=== PATIENT | male | born 1975 | race Caucasian/White ===

== ENCOUNTER 2016-06-27 15:31 | Emergency (ER) | payer BC ==
[2016-06-27 15:38] VITALS: BP 133/79
[2016-06-27 16:29] LABS: Urine Bilirubin Negative (Negative); Urine Glucose Negative (Negative); Urine Nitrite Negative (Negative)
[2016-06-27 16:30] LABS: Hematocrit 44 % (42-52); Hemoglobin 14.5 g/dl (14.0-18.0); Mean Corpuscular HGB Conc 33 g/dl (31-36); Mean Corpuscular Hemoglobin 30 pg (27-31); Mean Corpuscular Volume 91 fL (80-94); Mean Platelet Volume 10 um3 (7.4-10.4); Red Cell Distribution Width 14 % (10.5-15); White Blood Count 12.6 10^3/ul (3.5-10.8)
[2016-06-27 16:32] LABS: Add Diff/Slide Review? Slide Review Added; Comments Flag Yes
[2016-06-27 16:43] LABS: Benzodiazepine Urine Screen None Detected (None Detect)
[2016-06-27 16:45] LABS: ALT 21 U/L (7-52); AST 28 U/L (13-39); Albumin 4.6 g/dL (3.2-5.2); Alkaline Phosphatase 43 U/L (34-104); Anion Gap 9 mmol/L (2-11); BUN/Creatinine Ratio 10.8 (8-20); Blood Urea Nitrogen 9 mg/dL (6-24); CO2 Carbon Dioxide 21 mmol/L (22-32); Calcium 9.5 mg/dL (8.6-10.3); Chloride 107 mmol/L (101-111); EGFR African American 132.6 (>60); EGFR Non-African American 103.1 (>60); Globulin 2.7 g/dL (2-4); Glucose 87 mg/dL (70-100); Potassium 3.7 mmol/L (3.5-5.0); Sodium 137 mmol/L (133-145); Total Protein 7.3 g/dL (6.4-8.9)
[2016-06-27 17:15] LABS: Acetaminophen < 15 mcg/mL; Alcohol 189 mg/dL (<10); Salicylate < 2.50 mg/dL (<30)
[2016-06-27] MEDS ORDERED: clonazePAM TAB(*) 1 MG PO ONE (17:21)
[2016-06-27] MEDS ORDERED: clonazePAM TAB(*) 0.5 MG ONE (17:23)
[2016-06-27] MEDS ORDERED: clonazePAM TAB(*) 0.5 MG PO ONE (17:24)
[2016-06-27 19:37] LABS: Lithium 0.42 mmol/L (0.6-1.2)
[2016-06-27] MEDS ORDERED: Ibuprofen TAB* 600 MG PO ONE (19:44)
[2016-06-27] MEDS ORDERED: Ibuprofen TAB* 600 MG ONE (19:45)
--- NOTE | 2016-06-29 07:35 | ED ---
Santiago Tijerina Adam, scribed for Don Cerda MD on 06/27/16 at 1601 . Psychiatric Complaint - HPI Summary HPI Summary: Pt is a 40 year old male presenting with SI. His states that he has not been feeling well lately and has been thinking about killing himself. She told the triage nurse that the pt tried to jump out of a moving car today. She believes that he has tried hurting himself in the past. The states that they went out to celebrate her birthday today and the pt drank approximately 4 beers. She told him that he needs to get help and get his drinking under control , so she decided to take him to the ED. Pt also states that he has been awake since 2 am for his job with [employer]. He has been working this early shift for approximately 4 months. Pt has a PMHx of bipolar. He takes [place] and denies missing any doses. His psychiatrist is Dr. Culver. In addition to alcohol, he reports positive usage of cigarettes and marijuana. - History Of Current Complaint Chief Complaint: [facility]ental[facility] Time Seen by Provider: 06/27/16 15:40 Hx Obtained From: Patient, Family/Buyer - Onset/Duration: Gradual Onset, Lasting Days, Still Present Timing: Constant Severity Initially: Moderate Severity Currently: Moderate Character: Depressed Aggravating Factor(s): Alcohol Use Associated Signs And Symptoms: Positive: Sleep Disturbance - Goes to work at 2 am regularly Related History: Positive For: Prior Psychiatric Issues - Bipolar Has Suicidal: Reports: Thoughts, Demonstrates Gesture - Tried to jump out of a moving car (per ), Has Prior Attempt(s) - Per Ingestion History: Type/Name Of Drug - EtOH, Amount Ingested - 4 beers, Approximate Time Of Ingestion - Today - Allergies/Home Medications Allergies/Adverse Reactions: Allergies Allergy/AdvReac Type Severity Reaction Status Date / Time No Known Allergies Allergy Verified 06/27/16 15:34 Home Medications: Home Medications Desvenlafaxine Fumarate [Desvenlafaxine ER] 50 mg PO DAILY 06/27/16 [History Confirmed 06/27/16] clonazePAM TAB(*) [KlonoPIN TAB(*)] 1 mg PO TID PRN 06/27/16 [History Confirmed 06/27/16] PMH/Surg Hx/FS Hx/Imm Hx GI History: Denies: Other GI Disorders History: Denies: Other Problems/Disorders Musculoskeletal History: Denies: Other Musculoskeletal History Sensory History: Reports: Hx Contacts or Glasses Denies: Hx Hearing Aid Opthamlomology History: Reports: Hx Contacts or Glasses Neurological History: Reports: Hx Headaches - CLUSTER HEADACHES Psychiatric History: Reports: Hx Anxiety, Hx Depression, Hx Inpatient Treatment , Hx Community Mental Health Tx, Hx Bipolar Disorder, Hx of Violent Episodes Against Others, Hx Substance Abuse - Early 20s Denies: Hx Eating Disorder, Hx Suicide Attempt - "Close" - Surgical History Surgery Procedure, Year, and Place: TONSILLECTOMY A CHILD Hx Anesthesia Reactions: No Infectious Disease History: No Infectious Disease History: Denies: Traveled Outside the [place] in Last 30 Days - Family History Known Family History: Positive: Other - Alcohol abuse (brother and uncle) - Social History Occupation: Employed Full-time Lives: With Family - Alcohol Use: Daily Alcohol Amount: 4-5 DRINKS A WEEK Hx Substance Use: Yes Substance Use Type: Reports: Marijuana Hx Tobacco Use: Yes Smoking Status (MU): Heavy Every Day Tobacco Smoker Amount Used/How Often: 1 PPD Length of Time of Smoking/Using Tobacco: 10 YRS Have You Smoked in the Last Year: No Review of Systems Negative: Fever, Chills Negative: Erythema Negative: Sore Throat Negative: Chest Pain Negative: Shortness Of Breath, Cough Negative: Abdominal Pain, Vomiting, Nausea Negative: dysuria, hematuria Negative: Myalgia, Edema Negative: Rash Neurological: Other - Negative dizziness Positive: Depressed All Other Systems Reviewed And Are Negative: Yes Physical Exam - Summary Physical Exam Summary: Constitutional: Well-developed, Well-nourished, Alert. (-) Distressed Skin: Warm, Dry HENT: Normocephalic; Atraumatic Eyes: Conjunctiva normal Neck: Musculoskeletal ROM normal neck. (-) JVD, (-) Stridor, (-) Tracheal deviation Cardio: Rhythm regular, rate normal, Heart sounds normal; Intact distal pulses; The pedal pulses are 2+ and symmetric. Radial pulses are 2+ and symmetric. (-) Murmur Pulmonary/Chest wall: Effort normal. (-) Respiratory distress, (-) Wheezes, (-) Rales Abd: Soft, (-) Tenderness, (-) Distension, (-) Guarding, (-) Rebound Musculoskeletal: (-) Edema Lymph: (-) Cervical adenopathy Neuro: Alert, Oriented x3 Psych: Mood and affect Normal Triage Information Reviewed: Yes Vital Signs On Initial Exam: Initial Vitals Temp Pulse Resp BP Pulse Ox 98.3 F 95 16 133/79 100 06/27/16 15:34 06/27/16 15:34 06/27/16 15:34 06/27/16 15:34 06/27/16 15:34 Vital Signs Reviewed: Yes Diagnostics - Vital Signs Vital Signs Temp Pulse Resp BP Pulse Ox 06/27/16 15:34 98.3 F 95 16 133/79 100 - Laboratory Result Diagrams: 06/27/16 16:14 06/27/16 16:14 Lab Statement: Any lab studies that have been ordered have been reviewed, and results considered in the medical decision making process. - Additional Comments Diagnostic Additional Comments: U Cannabinoids Screen - Presumptive Positive Serum Alcohol - 189 Course/Dx - Differential Dx/Clinical Impression Provider Diagnosis: ETOH abuse, Suicidal ideation Discharge - Discharge Plan Condition: Stable Disposition: OTHER Discharge Disposition Comment: Sign out to Dr. Canales, pending sobriety and psych eval. The documentation as recorded by the Santiago mckeon Adam accurately reflects the service I personally performed and the decisions made by me, Don Cerda MD.
== END 2016-06-27 20:06 ==
LOC: ED 15:31
DX: F10.129 Alcohol abuse with intoxication, unspecified (principal); R45.851 Suicidal ideations
CPT/HCPCS: 36415; 80053; 80178; 80307; 80320; 80329; 81003; 84443; 85025; 99282; A9270-GY; G0480

== ENCOUNTER 2016-10-27 14:00 | Inpatient (IN) | payer BC ==
[2016-10-27] MEDS ORDERED: NS 0.9% 1000 ML* 1,000 ML IV ONE (14:20)
[2016-10-27 14:44] LABS: Hematocrit 43 % (42-52); Mean Corpuscular HGB Conc 33 g/dl (31-36); Mean Corpuscular Hemoglobin 29 pg (27-31); Mean Corpuscular Volume 90 fL (80-94); Mean Platelet Volume 10 um3 (7.4-10.4); Red Blood Count 4.75 10^6/ul (4.0-5.4); Red Cell Distribution Width 13 % (10.5-15); White Blood Count 10.2 10^3/ul (3.5-10.8)
[2016-10-27 14:46] LABS: Add Diff/Slide Review? Slide Review Added; Comments Flag Yes
[2016-10-27 14:53] LABS: Urine Bacteria Absent (Absent); Urine Bilirubin Negative (Negative); Urine Glucose Negative (Negative); Urine Nitrite Negative (Negative)
[2016-10-27 14:59] LABS: ALT 26 U/L (7-52); AST 26 U/L (13-39); Albumin 4.4 g/dL (3.2-5.2); Alkaline Phosphatase 40 U/L (34-104); Anion Gap 8 mmol/L (2-11); BUN/Creatinine Ratio 12.7 (8-20); Blood Urea Nitrogen 13 mg/dL (6-24); CO2 Carbon Dioxide 23 mmol/L (22-32); Calcium 9.3 mg/dL (8.6-10.3); Chloride 105 mmol/L (101-111); EGFR Non-African American 80.9 (>60); Globulin 2.4 g/dL (2-4); Glucose 93 mg/dL (70-100); Potassium 3.7 mmol/L (3.5-5.0); Sodium 136 mmol/L (133-145); Total Protein 6.8 g/dL (6.4-8.9)
[2016-10-27 15:05] LABS: Benzodiazepine Urine Screen None Detected (None Detect)
[2016-10-27 15:20] LABS: Acetaminophen < 15 mcg/mL; Alcohol < 10 mg/dL (<10); Lithium 0.62 mmol/L (0.6-1.2); Salicylate < 2.50 mg/dL (<30)
[2016-10-27 15:30] LABS: TSH (Thyroid Stimulating Horm) 2.03 mcIU/mL (0.34-5.60)
[2016-10-27] MEDS ORDERED: Acetaminophen TAB* 325 MG PO PRN (17:10)
[2016-10-27] MEDS ORDERED: Al Hydrox/Mg Hydrox/Simet LIQ* 30 ML UDC PO PRN (17:10)
[2016-10-27] MEDS ORDERED: Haloperidol TAB* 5 MG PO PRN (17:11)
[2016-10-27] MEDS ORDERED: LORazepam TAB(*) 1 MG PO PRN (17:12)
[2016-10-27] MEDS ORDERED: Nicotine GUM* 2 MG PO PRN (17:13)
[2016-10-27] MEDS ORDERED: Mouth Piece, Nicotine* 1 EACH CARTRIDGE INH ONE (18:00)
[2016-10-27] MEDS: Nicotine Inhaler* 10 MG AMP INH PRN ×2 (18:28→21:03)
--- NOTE | 2016-10-27 18:34 | ED ---
Clint Tijerina Auryana, scribed for Rogelio Arciniega MD on 10/27/16 at 1406 . Psychiatric Complaint - HPI Summary HPI Summary: 41 year old male presents to the ED with SI and attempt. Patient is unsure who called the police - states he lives with his family and did not speak with anyone at work. He does report that this morning he spoke with his 10 year old daughter and told her to "make sure they don't cremate me". Patient reports that he is tired of his life and took 5-6 clonazepam today at 12:00. He states that he was unable to make an appointment with his therapist/psychiatrist over the last 3 weeks. He states that he has not been eating normally and that yesterday he was having delusions and hallucinations possibly due to sleep deprivation and lack of food. He reports that he normally sleeps 4 hours a night and last night slept about 8 hours. PMHx is significant for depression, anxiety, bipolar disorder (Suarez Rx), alcohol abuse, substance abuse, inpatient admission- no history of self-harm tendencies. SHx is significant for tobacco, alcohol abuse (May last drink), and substance abuse (marijuana, and prescribed). 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 - History Of Current Complaint Time Seen by Provider: 10/27/16 14:05 Accompanied By: police Hx Obtained From: Patient Onset/Duration: Gradual Onset, Still Present Character: Frustrated Associated Signs And Symptoms: Positive: Hallucinating, Appetite Change - decreased Related History: Positive For: Prior Psychiatric Issues, Drug Abuse Counseling, Admissions Related To Substance Abuse Has Suicidal: Reports: Thoughts, Demonstrates Gesture Ingestion History: Type/Name Of Drug - clonazepam, Amount Ingested - 5-6 1mg tablets, Approximate Time Of Ingestion - 12 PM - Allergies/Home Medications Allergies/Adverse Reactions: Allergies Allergy/AdvReac Type Severity Reaction Status Date / Time No Known Allergies Allergy Verified 06/27/16 15:34 Home Medications: Home Medications Cialis 5 mg PO DAILY 10/27/16 [History Confirmed 10/27/16] Pristiq 50 mg PO 10/27/16 [History] PMH/Surg Hx/FS Hx/Imm Hx GI History: Denies: Other GI Disorders History: Denies: Other Problems/Disorders Musculoskeletal History: Denies: Other Musculoskeletal History Sensory History: Reports: Hx Contacts or Glasses Denies: Hx Hearing Aid Opthamlomology History: Reports: Hx Contacts or Glasses Neurological History: Reports: Hx Headaches - CLUSTER HEADACHES Psychiatric History: Reports: Hx Anxiety, Hx Depression, Hx Inpatient Treatment , Hx Community Mental Health Tx, Hx Bipolar Disorder, Hx of Violent Episodes Against Others, Hx Substance Abuse - Early 20s Denies: Hx Eating Disorder, Hx Suicide Attempt - "Close" - Surgical History Surgery Procedure, Year, and Place: TONSILLECTOMY A CHILD Hx Anesthesia Reactions: No - Family History Known Family History: Positive: Other - Alcohol abuse (brother and uncle) - Social History Occupation: Employed Full-time Lives: With Family Alcohol Use: Daily Alcohol Amount: 4-5 DRINKS A WEEK - on ED physician visit patient states sober since may Hx Substance Use: Yes Substance Use Type: Reports: Marijuana, Prescribed Hx Tobacco Use: Yes Smoking Status (MU): Heavy Every Day Tobacco Smoker Amount Used/How Often: 1 PPD Length of Time of Smoking/Using Tobacco: 10 YRS Have You Smoked in the Last Year: No Review of Systems Positive: Other - CLONOPIN X6 ingestion . Negative: Fever Eyes: Negative ENT: Negative Cardiovascular: Negative Respiratory: Negative Gastrointestinal: Negative Genitourinary: Negative Musculoskeletal: Negative Skin: Negative Neurological: Negative Positive: Other - SI All Other Systems Reviewed And Are Negative: Yes Physical Exam - Summary Physical Exam Summary: The patient is well-nourished in no acute distress and in no acute pain. The skin is warm and dry and skin color reflects adequate perfusion. HEENT: The head is normocephalic and atraumatic. The pupils are equal and reactive. The conjunctivae are clear and without drainage. Nares are patent and without drainage. Mouth reveals moist mucous membranes and the throat is without erythema and exudate. The external ears are intact. The ear canals are patent and without drainage. The tympanic membranes are intact. Neck is supple with full range of motion and non-tender. There are no carotid bruits. There is no neck vein distension. Respiratory: Chest is non-tender. Lungs are clear to auscultation and breath sounds are symmetrical and equal. Cardiovascular: Hear is regular rate and rhythm. There is no murmur or rub auscultated. There is no peripheral edema and pulses are symmetrical and equal. Abdomen: The abdomen is soft and non-tender. There are normal bowel sounds heard in all four quadrants and there is no organomegaly palpated. Musculoskeletal: There is no back pain noted. Extremities are non-tender with full range of motion. There is good capillary refill. There is no peripheral edema or calf tenderness elicited. Neurological: Patient is alert and oriented to person, place and time. The patient has symmetrical motor strength in all four extremities. Cranial nerves are grossly intact. Deep tendon reflexes are symmetrical and equal in all four extremities. Psychiatric: The patient appears depressed with clear suicidal ideation. Triage Information Reviewed: Yes Vital Signs On Initial Exam: TEMPERATURE: 99.5 F PULSE: 83 RR: 16 O2 saturation: 96% on room air BP: 119/74 Vital Signs Reviewed: Yes Diagnostics - Vital Signs Vital Signs Temp Pulse Resp BP Pulse Ox 10/27/16 16:55 98.6 F 71 17 125/76 100 10/27/16 16:00 74 18 98/37 98 10/27/16 15:30 78 21 95/42 97 10/27/16 15:00 76 23 110/59 97 10/27/16 14:47 73 22 97 10/27/16 14:45 110/63 10/27/16 14:37 99.5 F 84 18 119/84 98 10/27/16 14:21 99.5 F 83 16 119/74 96 - Laboratory Lab Results: Lab Results 10/27/16 10/27/16 10/27/16 Range/Units 14:30 14:30 14:43 WBC 10.2 (3.5-10.8) 10^3/ul RBC 4.75 (4.0-5.4) 10^6/ul Hgb 14.0 (14.0-18.0) g/dl Hct 43 (42-52) % MCV 90 (80-94) fL MCH 29 (27-31) pg MCHC 33 (31-36) g/dl RDW 13 (10.5-15) % Plt Count 174 (150-450) 10^3/ul MPV 10 (7.4-10.4) um3 Neut % (Auto) 70.5 (38-83) % Lymph % (Auto) 17.9 L (25-47) % [place] % (Auto) 6.1 (1-9) % Eos % (Auto) 4.5 (0-6) % Baso % (Auto) 1.0 (0-2) % Absolute Neuts (auto) 7.2 (1.5-7.7) 10^3/ul Absolute Lymphs (auto) 1.8 (1.0-4.8) 10^3/ul Absolute Monos (auto) 0.6 (0-0.8) 10^3/ul Absolute Eos (auto) 0.5 (0-0.6) 10^3/ul Absolute Basos (auto) 0.1 (0-0.2) 10^3/ul Absolute Nucleated RBC 0.01 10^3/ul Nucleated RBC % 0.1 Sodium 136 (133-145) mmol/L Potassium 3.7 (3.5-5.0) mmol/L Chloride 105 (101-111) mmol/L Carbon Dioxide 23 (22-32) mmol/L Anion Gap 8 (2-11) mmol/L BUN 13 (6-24) mg/dL Creatinine 1.02 (0.67-1.17) mg/dL Est GFR ( Amer) 104.0 (>60) Est GFR (Non-Af Amer) 80.9 (>60) BUN/Creatinine Ratio 12.7 (8-20) Glucose 93 (70-100) mg/dL Calcium 9.3 (8.6-10.3) mg/dL Total Bilirubin 0.60 (0.2-1.0) mg/dL AST 26 (13-39) U/L ALT 26 (7-52) U/L Alkaline Phosphatase 40 (34-104) U/L Total Protein 6.8 (6.4-8.9) g/dL Albumin 4.4 (3.2-5.2) g/dL Globulin 2.4 (2-4) g/dL Albumin/Globulin Ratio 1.8 (1-3) TSH 2.03 (0.34-5.60) mcIU/mL Urine Color Yellow Urine Appearance Clear Urine pH 7.0 (5-9) Ur Specific [place] 1.004 L (1.010-1.030) Urine Protein Negative (Negative) Urine Ketones Negative (Negative) Urine Blood Negative (Negative) Urine Nitrate Negative (Negative) Urine Bilirubin Negative (Negative) Urine Urobilinogen Negative (Negative) Ur Leukocyte Esterase Trace H (Negative) Urine WBC (Auto) Trace(0-5/hpf) (Absent) Urine RBC (Auto) Absent (Absent) Urine Bacteria Absent (Absent) Urine Glucose Negative (Negative) Salicylates < 2.50 (<30) mg/dL Urine Opiates Screen (None Detect) Acetaminophen < 15 mcg/mL Ur Barbiturates Screen (None Detect) Ur Phencyclidine Scrn (None Detect) Ur Amphetamines Screen (None Detect) U Benzodiazepines Scrn (None Detect) Suarez 0.62 (0.6-1.2) mmol/L Urine Cocaine Screen (None Detect) U Cannabinoids Screen (None Detect) Serum Alcohol < 10 (<10) mg/dL 10/27/16 Range/Units 14:43 WBC (3.5-10.8) 10^3/ul RBC (4.0-5.4) 10^6/ul Hgb (14.0-18.0) g/dl Hct (42-52) % MCV (80-94) fL MCH (27-31) pg MCHC (31-36) g/dl RDW (10.5-15) % Plt Count (150-450) 10^3/ul MPV (7.4-10.4) um3 Neut % (Auto) (38-83) % Lymph % (Auto) (25-47) % [place] % (Auto) (1-9) % Eos % (Auto) (0-6) % Baso % (Auto) (0-2) % Absolute Neuts (auto) (1.5-7.7) 10^3/ul Absolute Lymphs (auto) (1.0-4.8) 10^3/ul Absolute Monos (auto) (0-0.8) 10^3/ul Absolute Eos (auto) (0-0.6) 10^3/ul Absolute Basos (auto) (0-0.2) 10^3/ul Absolute Nucleated RBC 10^3/ul Nucleated RBC % Sodium (133-145) mmol/L Potassium (3.5-5.0) mmol/L Chloride (101-111) mmol/L Carbon Dioxide (22-32) mmol/L Anion Gap (2-11) mmol/L BUN (6-24) mg/dL Creatinine (0.67-1.17) mg/dL Est GFR ( Amer) (>60) Est GFR (Non-Af Amer) (>60) BUN/Creatinine Ratio (8-20) Glucose (70-100) mg/dL Calcium (8.6-10.3) mg/dL Total Bilirubin (0.2-1.0) mg/dL AST (13-39) U/L ALT (7-52) U/L Alkaline Phosphatase (34-104) U/L Total Protein (6.4-8.9) g/dL Albumin (3.2-5.2) g/dL Globulin (2-4) g/dL Albumin/Globulin Ratio (1-3) TSH (0.34-5.60) mcIU/mL Urine Color Urine Appearance Urine pH (5-9) Ur Specific [place] (1.010-1.030) Urine Protein (Negative) Urine Ketones (Negative) Urine Blood (Negative) Urine Nitrate (Negative) Urine Bilirubin (Negative) Urine Urobilinogen (Negative) Ur Leukocyte Esterase (Negative) Urine WBC (Auto) (Absent) Urine RBC (Auto) (Absent) Urine Bacteria (Absent) Urine Glucose (Negative) Salicylates (<30) mg/dL Urine Opiates Screen None detected (None Detect) Acetaminophen mcg/mL Ur Barbiturates Screen None detected (None Detect) Ur Phencyclidine Scrn None detected (None Detect) Ur Amphetamines Screen None detected (None Detect) U Benzodiazepines Scrn None detected (None Detect) [place] (0.6-1.2) mmol/L Urine Cocaine Screen None detected (None Detect) U Cannabinoids Screen Presumptive positive H (None Detect) Serum Alcohol (<10) mg/dL Result Diagrams: 10/27/16 14:30 10/27/16 14:30 Lab Statement: Any lab studies that have been ordered have been reviewed, and results considered in the medical decision making process. Course/Dx - Course Assessment/Plan: 41 year old male presents to the ED with SI and attempt. Patient is unsure who called the police - states he lives with his family and did not speak with anyone at work. He does report that this morning he spoke with his 10 year old daughter and told her to "make sure they don't cremate me" . Patient reports that he is tired of his life and took 5-6 clonazepam today at 12:00. He states that he was unable to make an appointment with his therapist/ psychiatrist over the last 3 weeks. He states that he has not been eating normally and that yesterday he was having delusions and hallucinations possibly due to sleep deprivation and lack of food. He reports that he normally sleeps 4 hours a night and last night slept about 8 hours. PMHx is significant for depression, anxiety, bipolar disorder (Suarez Rx), alcohol abuse, substance abuse, inpatient admission- no history of self-harm tendencies. SHx is significant for tobacco, alcohol abuse (May last drink), and substance abuse ( marijuana, and prescribed). 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 In ED course, the patient received IV fluids. UA shows trace leukocyte esterase. Toxicology screen is (+) for cannabinoids. Serum alcohol <10. Suarez 0.62. Salicylates <2.50. Acetaminophen <15. Medically clear at 15:15. After mental health evaluation, Dr. Amor recommended 9.39 -involuntary [place] [facility] [place] Dx: depressive disorder NOS. - Differential Dx/Clinical Impression Differential Diagnosis/HQI/PQRI: Positive: Bipolar Disorder, Suicidal Ideation Provider Diagnosis: depressive disorder NOS Discharge - Discharge Plan Condition: Stable Disposition: ADMITTED TO [facility] The documentation as recorded by the Clint mckeon Auryana accurately reflects the service I personally performed and the decisions made by me, Rogelio Arciniega MD.
[2016-10-27] MEDS ORDERED: clonazePAM TAB(*) 1 MG ONE (20:59)
[2016-10-27] MEDS ORDERED: Mirtazapine TAB* 15 MG ONE (21:00)
[2016-10-27] MEDS ORDERED: Lithium Carbonate TAB* 300 MG ONE (21:00)
[2016-10-28] MEDS: Nicotine Inhaler* 10 MG AMP INH PRN ×8 (06:18→23:41)
[2016-10-28] MEDS: Lithium Carbonate TAB* 300 MG PO SCH ×2 (08:48→21:27)
[2016-10-28] MEDS: Vitamin THERAPEUTIC TAB PO SCH (08:48)
[2016-10-28] MEDS: clonazePAM TAB(*) 1 MG PO PRN ×4 (14:14→23:41)
[2016-10-28] MEDS: DESVENLAFAXINE 50 MG PO SCH (14:24)
[2016-10-28] MEDS ORDERED: Mirtazapine TAB* 15 MG PO SCH (21:00)
--- NOTE | 2016-10-29 02:17 | HP ---
HISTORY AND PHYSICAL: DATE OF ADMISSION: 10/27/16 IDENTIFYING DATA: Mr. Nix is a 41-year-old , domiciled, employed male, living with his and 2 daughters in [place], [place]. He was brought in by police on a 9.45 status and he was admitted on emergency status. CHIEF COMPLAINT: "I was upset because my made me return my birthday gift! " HISTORY OF PRESENT ILLNESS: The patient is known to our services from a previous psychiatric admission in 2013. He has diagnosis of bipolar disorder, history of cannabis and alcohol use, and of partial adherence with outpatient psychiatric treatment. He relates that on , a pair of headphones that was given to him by his for his birthday broke and he went to [facility] to return it and ended up exchanging it for a more expensive pair and had to pay 60 dollars additional for the new headphones. When he returned home, his was quite displeased and asked him to return the headphones, which he did. He recalls feeling upset and on night he took 3 Klonopin and he went to bed. He says, he was at home the following morning, sitting on his front porch , when police officers came to his house, detained him and drove him to the emergency room of this hospital. He suspects his was the person who had called the police as he had made statements to her and to his father about wanting to kill himself by crashing his car into something, during their argument about the headphones. Today, he minimizes his statements, "Hey! I'm always suicidal, but I have never acted on it." The patient describes chronic symptoms of irritability, mood lability, impulsivity, difficulty with anger. He admits to smoking about 2 bowls of marijuana daily to help "mellow his mood" and asserts that when he smokes marijuana, he abstains from using Klonopin concomitantly. He reports having kept his clinic appointments at [facility]. 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 REVIEW OF PSYCHIATRIC SYMPTOMS: he denies clear periods of makenzie with decreased need for sleep, increased goal-directedness, racing thoughts, pressured speech or grandiosity. Rather he describes chronic irritability, mood instability, anger, but denies any history of violent behavior. He denies psychotic symptoms. He denies difficulty with anxiety. He reports childhood diagnosis of ADHD and endorses difficulties with impulsivity, inattention, and hyperactivity. SUICIDE/HOMICIDE HISTORY: The patient reports recurrent thoughts of suicide, but denies previous mine suicide attempt, history of self-injury or violence. PAST PSYCHIATRIC HISTORY: This is his fourth lifetime inpatient psychiatric admission. He had 2 admissions at [facility] in [place] for suicidal ideation. His most recent admission was here in March 2014, also in the context of making suicidal statements. He has outpatient care at [facility] with psychiatrist, Dr. Dilma Culver, and with community nurse Bruno Jimenez. He is prescribed lithium 600 mg twice daily, Klonopin 1 mg 3 times daily as needed for anxiety, Remeron 15 mg at bedtime, and Pristiq 50 mg daily. He reports having been generally compliant with taking prescribed medications. PAST MEDICAL HISTORY: The patient complains shooting pain from his right elbow from overexertion as he was moving from one location to another and was the only person to load the car. He denies any other acute medical problems, any history of head trauma, loss of consciousness, seizures, or surgeries. REVIEW OF MEDICAL SYSTEMS: Pain from right elbow, numbness and tingling sensation in the fingers of his right hand. ALLERGIES: No known drug allergies. PHYSICAL EXAMINATION GENERAL: He is a well-appearing 41-year-old white male who does not appear to be in any acute physical distress. He is alert and oriented x3. VITAL SIGNS: Admission vital signs, blood pressure 125/76, pulse is 71, respirations 17, temperature 98.6. SKIN: Skin texture, turgor, and pigmentation are within normal limits. HEENT: Head atraumatic, normocephalic, symmetrical. Eyes: PERRLA. Tympanic membranes intact. Sclerae anicteric. Conjunctivae clear. NECK: Trachea midline, freely mobile. No cervical lymphadenopathy. No nuchal rigidity. LUNGS: Clear to auscultation bilaterally. HEART: Regular rate and rhythm. S1, S2. No murmurs, gallops, or rubs. BREASTS: No mass or discharge. ABDOMEN: Soft, nontender. No masses, organomegaly, or rebound tenderness. No scars noted. Active bowel sounds in all 4 quadrants. EXTREMITIES: Pain and some limitation in range of movement of his right arm with complaint of tingling sensation in his finger. No limitation of movement in his other extremities. NEUROLOGIC: Cranial nerves II through XII intact. Cerebellar function intact. Muscle strength grade 5/5 in all 4 extremities. GENITAL: Not performed. RECTAL: Not performed. STRUCTURAL EXAM: The patient examined in both supine and upright positions. No gross AP or lateral asymmetry. Gait and movement are within normal limits. LABORATORIES ON ADMISSION: CBC, complete metabolic panel, urinalysis within normal limits. Urine toxicology screen is positive for cannabis. SUBSTANCE ABUSE HISTORY: The patient admits to having had issues with alcohol and was, until last month, drinking about 20 beers daily. He denies legal or medical consequences. He also admits to smoking 1 to 2 bowls of marijuana daily to help with his mood. He smokes 1 pack per day of tobacco. He denies the use of other illicit drugs, misuse of prescribed medication. His urine drug screen did not show the presence of benzodiazepines. FAMILY HISTORY: Bipolar disorder and polysubstance dependence in an uncle who has attempted suicide several times. PERSONAL AND SOCIAL HISTORY: He is from [place], grew up there, lived in [place] for about 4 years before returning to the area. He has been for about 2-1/2 years and he has a 2-year-old daughter with his , also has custody of his 10-year-old stepdaughter. 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 He describes periodically strained relationship with his . He reports having a Master's degree in photography. MENTAL STATUS EXAMINATION: Finds an averagely built 41-year-old white male with multiple tattoos on his torso and extremities and a long hawthorne. He makes intense eye contact. He is loud, somewhat restless and agitated. His affect is irritable. Mood is dysphoric. He avidly denies suicidal ideation or any homicidal ideation or urges to self-harm, and he contracts for safety. There is no evidence of formal thought disorder. No overt delusions. He denies auditory or visual hallucinations. Insight and judgment are limited. Impulse control is tenuous in this setting. He is alert. He is oriented x3. SUMMARY: Fourth lifetime inpatient psychiatric admission for this 41-year-old male with history of recurrent suicidal ideation, previous diagnosis of ADHD, bipolar disorder, and alcohol and cannabis and benzodiazepine dependence, partial adherence with his outpatient psychiatric care, who was brought in by police from home and he was admitted because of making suicidal statements in the context of argument with his . Medical history is remarkable for shooting pain in his right elbow. His urine drug screen is positive for cannabis. There is family history of bipolar disorder and suicide attempts and polysubstance dependence in an uncle. 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 DIAGNOSTIC IMPRESSIONS: 1. Mood disorder, not otherwise specified. 2. History of bipolar disorder. 3. Alcohol, cannabis, and benzodiazepine dependence. 4. Cluster B traits. (antisocial and borderline). TREATMENT PLAN: 1. Admit to mental health unit, 15-minute checks, full code status. Legal status is emergency. 2. Initiate comprehensive milieu, individual, and group psychotherapeutic support. 3. Medication management, we continue his outpatient regimen of medications until contacting his outpatient prescribers. 4. Discharge planning will involve coordination of his aftercare with [facility]. [id number]/[facility] #: [id number] OMEGA
[2016-10-29] MEDS: Nicotine Inhaler* 10 MG AMP INH PRN ×3 (07:10→13:17)
[2016-10-29 07:23] VITALS: BP 122/69
[2016-10-29] MEDS: Lithium Carbonate TAB* 300 MG PO SCH (08:27)
[2016-10-29] MEDS: clonazePAM TAB(*) 1 MG PO PRN ×2 (08:27→12:51)
[2016-10-29] MEDS: DESVENLAFAXINE 50 MG PO SCH (08:28)
[2016-10-29] MEDS: Vitamin THERAPEUTIC TAB PO SCH (08:41)
--- NOTE | 2016-10-29 15:26 | DS ---
Subjective - Subjective Discharge Date: 10/29/16 Subjective: Chon maintains readiness for discharge. He affirms she feels safe and good about being alive. He denies emotional pain or unmanageable anxiety. He avidly denies having thoughts of homicide, suicide or urges to self-harm. He denies problems with medications, and says she does not see obstacles to routine care / therapy, or emergency help if needed again. Objective - Appearance Appearance: Healthy Appearing Dysmorphic Features: No Hygiene: Normal Grooming: Well Kept - Behavior Psychomotor Activities: Normal Exhibits Abnormal Movement: No - Attitude and Relatedness Attitude and Relatedness: Cooperative Eye Contact: Fair - Speech Quality: Unpressured Latencies: Normal Quantity: Appropriate - Mood Patient's Decription of Mood: "Okay" - Affect Observed Affect: Fair Affect Consistent with: Euthymia - Thought Process Patient's Thought Process: Coherent, Goal Directed Thought Content: No Passive Wish, No Suicidal Planning, No Homicidal Ideation, No Paranoid Ideation - Sensorium Experiencing Hallucinations: No, Sensorium is Clear - Level of Consciousness Level of Consciousness: Alert Orientation: Yes Intact - Impulse Control Impulse Control: Intact - Insight and Judgement Insight and Judgement: Poor - Group Participation Particating in Group Activities: Yes - Medication Management Medication Management Adherence: Yes Treatment Course & Assessment Clinical Course & Impression: SUMMARY: Fourth lifetime inpatient psychiatric admission for this 41-year-old male with history of recurrent suicidal ideation, previous diagnosis of ADHD, bipolar disorder, and alcohol and cannabis and benzodiazepines dependence, partial adherence with his outpatient psychiatric care, who was brought in by police from home and he was admitted because of making suicidal statements in the context of argument with his . Medical history is remarkable for shooting pain in his right elbow. His urine drug screen is positive for cannabis. There is family history of bipolar disorder and suicide attempts and polysubstance dependence in an uncle. 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 Clear for release: 10/29/16 Chon stabilized here behaviorally and improved clinically. He was safe on checks , adherent with routines, and free of active suicidal ideation. He wasl engaged in inpatient treatment and discharge processes. Medication management continued trials of Lockridge, Desvenlafaxine, Mirtazapine and Clonazepam. Risk concern centers on polysubstance use use and suicidal thinking. Chon's profile puts him at chronic elevated risk for suicide but at this time acute risk is assessed as low - factors are is tolerable and reduced symptom burden, absence of impairment, and benign observed behavior and ideation. Relapse on substances or non-adherence with psychiatric and substance treatment could increase his risk again. Merits Inpatient Hospitalization: No Clear for Discharge: Adequate Clinical Respons, Acceptable Safety Profile Inpatient DSM-IV Dx: 1. Mood disorder, not otherwise specified. 2. History of bipolar disorder. 3. Alcohol, cannabis, and benzodiazepine use disorder, severe. 4. Cluster B traits. (antisocial and borderline). Discharge Planning - Discharge Planning Discharge Plan: Outpatient Follow Up Outpatient [facility] Recommendations for Continuing Care: Medication Management, Psychotherapy Medications: Continue Medications (5) These are your current medications to keep taking at home. 1. Lockridge Carbonate TAB* [Lockridge Carbonate TAB*] 600 mg oral twice daily Last Taken: 10/27/16 09:00 2. clonazePAM TAB(*) [Klonopin TAB(*)] 1 mg oral three times daily as needed Last Taken: 10/27/16 12:00 PRN Reason: Anxiety 3. Cialis 5 mg oral every day Last Taken: 10/27/16 09:00 4. Pristiq 50 mg oral every day Last Taken: 10/27/16 09:00 5. Mirtazapine [Remeron] 15 mg oral every day Last Taken: Unknown Discharge Planning: Prescriptions provided for discharge [] Yes [X] No Follow up care details as per social work arrangements. Patient response to discharge plan: [X] eager for discharge [] agreeable with discharge plan [] ambivalent about discharge [] disagrees with discharge today Follow-up CHON OMER has been referred to the following clinics/specialists for follow- up care: [facility] [address] [place] [address] You are scheduled to see Juan Jimenez for therapy on November 05 at 8: 30am. If you feel you need to be seen earlier then please call Juan directly and he will try to fit you in. You are scheduled to see Dr. Culver on November 19 at 3pm.
== END 2016-10-29 14:30 | disposition home or self-care (01) | DRG 753 ==
LOC: ED 14:00 → BSU 17:39
PROVIDERS: ADMIT Psychiatry & Neurology Psychiatry; ATTEND Psychiatry & Neurology Psychiatry
DX: F39 Unspecified mood [affective] disorder (principal); F13.20 Sedative, hypnotic or anxiolytic dependence, uncomplicated; F31.9 Bipolar disorder, unspecified; F10.20 Alcohol dependence, uncomplicated; F12.20 Cannabis dependence, uncomplicated; Y90.9 Presence of alcohol in blood, level not specified; F90.9 Attention-deficit hyperactivity disorder, unspecified type; Z81.8 Family history of other mental and behavioral disorders; M25.521 Pain in right elbow; R20.0 Anesthesia of skin; Z91.5 Personal history of self-harm; F32.9 Major depressive disorder, single episode, unspecified; F41.9 Anxiety disorder, unspecified; Z81.1 Family history of alcohol abuse and dependence
CPT/HCPCS: 36415; 80053; 80178; 80307; 80320; 80329; 81003; 81015; 84443; 85025; 87086; 99222; 99238; A9270-GY; G0480

== ENCOUNTER 2016-11-26 08:44 | Emergency (ER) | payer BC ==
[2016-11-26 08:53] VITALS: BP 103/65
--- NOTE | 2016-11-26 09:08 | UC ---
Lower Extremity/Ankle HPI - HPI Summary HPI Summary: 41M presents with right leg injury 6 days ago. He states that he got into a rage with his bipolar and does not remember what happened. He states this occurs a lot with his bipolar. He had a bump on his rollins that he notice then and then last night he noticed some bruising to his ankle. He is still able to ambulate. He denies any numbness or tingling. He states that is is a weird feeling not necessarily pain. He denies any SI/HI. He states that he is out of his rage. He states he is [place] get [place]. - History of Current Complaint Chief Complaint: UCLowerExtremity Stated Complaint: FOOT INJURY Time Seen by Provider: 11/26/16 09:01 - Allergies/Home Medications Allergies/Adverse Reactions: Allergies Allergy/AdvReac Type Severity Reaction Status Date / Time No Known Allergies Allergy Verified 10/27/16 20:02 PMH/Surg Hx/FS Hx/Imm Hx Previously Healthy: Yes Endocrine History: Other Other Endocrine History: no DM Psychological History: Bipolar Disorder - Surgical History Surgical History: Yes Surgery Procedure, Year, and Place: TONSILLECTOMY A CHILD - Family History Known Family History: Positive: Other - Alcohol abuse (brother and uncle) - Social History Alcohol Use: None Alcohol Amount: 4-5 DRINKS A WEEK - on ED physician visit patient states sober since may Substance Use Type: Marijuana, Prescribed Smoking Status (MU): Heavy Every Day Tobacco Smoker Amount Used/How Often: 1 PPD Length of Time of Smoking/Using Tobacco: 10 YRS Have You Smoked in the Last Year: No When Did the Patient Quit Smoking/Using Tobacco: 2010 - Immunization History Most Recent Influenza Vaccination: Never Most Recent Tetanus Shot: 09/06/2013 Most Recent Pneumonia Vaccination: Never Review of Systems Skin: Bruising Respiratory: Negative Cardiovascular: Negative Musculoskeletal: Myalgia - right leg pain All Other Systems Reviewed And Are Negative: Yes Physical Exam Triage Information Reviewed: Yes Appearance: Well-Appearing Vital Signs: Initial Vital Signs Temp 98.7 F 11/26/16 08:45 Pulse 86 11/26/16 08:45 Resp 16 11/26/16 08:45 BP 103/65 11/26/16 08:45 Pulse Ox 99 11/26/16 08:45 Eyes: Positive: Conjunctiva Clear ENT: Positive: Normal ENT inspection, Pharynx normal, TMs normal Respiratory: Positive: Lungs clear, Normal breath sounds Cardiovascular: Positive: RRR Musculoskeletal: Positive: Strength Intact - right foot, ROM Intact - right foot , Other: - good pulses, ecchmyosis noted to right foot, contusion noted to right leg. Diagnostics - Radiology leg, ankle, foot Xray Interpretation: No Acute Changes - IMPRESSION: Soft tissue swelling as described without evidence for fracture or articular malalignment Radiology Interpretation Completed By: Radiologist Lower Extremity Course/Dx - Course Course Of Treatment: 41M presents with right leg injury 6 days ago. He states that he got into a rage with his bipolar and does not remember what happened. He states this occurs a lot with his bipolar. He had a bump on his rollins that he notice then and then last night he noticed some bruising to his ankle. He is still able to ambulate. He denies any numbness or tingling. He states that is is a weird feeling not necessarily pain. on exam ecchymosis noted to right foot, contusion to right rollins, full ROM. xray no fracture read by radiology and reexamined by me. will treat with RICE. patient understands and agrees with plan. - Differential Dx/Diagnosis Differential Diagnosis/HQI/PQRI: Contusion, Fracture (Closed), Sprain Provider Diagnoses: right leg contusion Discharge - Discharge Plan Condition: Good Disposition: HOME Patient Education Materials: Contusion in Adults (ED) Referrals: Km Fishman MD [Primary Care Provider] - Additional Instructions: Take Tylenol or ibuprofen every 6 hours as needed for pain Apply ice, rest, elevate Follow up with primary care physician within 5 days Return to ED if develop any new or worsening symptoms
--- NOTE | 2016-11-26 09:28 | RAD ---
Indication: Bruising medial and posterior RIGHT ankle and anterior tibia following direct trauma 1 week ago. Comparison: No relevant prior exams available on the [facility] PACS for comparison. Technique: AP and lateral views RIGHT lower leg. AP, lateral, and mortise views RIGHT ankle. AP, lateral, and oblique views RIGHT foot. Report: At the lower leg there is soft tissue swelling most prominent anteriorly at the level of the mid diaphysis of the tibia and medially in the distal third. Negative for fracture or malalignment. The ankle views demonstrate normal articular alignment and absence of fracture. Mild nonfocal soft tissue swelling. The foot views demonstrate normal articular alignment and absence of fracture. Minimal osteophytosis and joint space narrowing at the first metatarsal phalangeal joint. Mild soft tissue swelling at the hind and midfoot. IMPRESSION: Soft tissue swelling as described without evidence for fracture or articular malalignment.
--- NOTE | 2016-11-26 09:28 | RAD ---
Indication: Bruising medial and posterior RIGHT ankle and anterior tibia following direct trauma 1 week ago. Comparison: No relevant prior exams available on the [facility] PACS for comparison. Technique: AP and lateral views RIGHT lower leg. AP, lateral, and mortise views RIGHT ankle. AP, lateral, and oblique views RIGHT foot. Report: At the lower leg there is soft tissue swelling most prominent anteriorly at the level of the mid diaphysis of the tibia and medially in the distal third. Negative for fracture or malalignment. The ankle views demonstrate normal articular alignment and absence of fracture. Mild nonfocal soft tissue swelling. The foot views demonstrate normal articular alignment and absence of fracture. Minimal osteophytosis and joint space narrowing at the first metatarsal phalangeal joint. Mild soft tissue swelling at the hind and midfoot. IMPRESSION: Soft tissue swelling as described without evidence for fracture or articular malalignment.
--- NOTE | 2016-11-26 09:28 | RAD ---
Indication: Bruising medial and posterior RIGHT ankle and anterior tibia following direct trauma 1 week ago. Comparison: No relevant prior exams available on the [facility] [place] [place] PACS for comparison. Technique: AP and lateral views RIGHT lower leg. AP, lateral, and mortise views RIGHT ankle. AP, lateral, and oblique views RIGHT foot. Report: At the lower leg there is soft tissue swelling most prominent anteriorly at the level of the mid diaphysis of the tibia and medially in the distal third. Negative for fracture or malalignment. The ankle views demonstrate normal articular alignment and absence of fracture. Mild nonfocal soft tissue swelling. The foot views demonstrate normal articular alignment and absence of fracture. Minimal osteophytosis and joint space narrowing at the first metatarsal phalangeal joint. Mild soft tissue swelling at the hind and midfoot. IMPRESSION: Soft tissue swelling as described without evidence for fracture or articular malalignment.
== END 2016-11-26 09:45 | disposition home or self-care (01) ==
LOC: UCEAST 08:44
DX: S80.11XA Contusion of right lower leg, initial encounter (principal); S90.01XA Contusion of right ankle, initial encounter; X58.XXXA Exposure to other specified factors, initial encounter; Y93.9 Activity, unspecified; Y92.9 Unspecified place or not applicable; F31.9 Bipolar disorder, unspecified; F12.90 Cannabis use, unspecified, uncomplicated; F17.210 Nicotine dependence, cigarettes, uncomplicated
CPT/HCPCS: 99211; G0463

== ENCOUNTER 2017-06-30 09:24 | Emergency (ER) | payer BC ==
[2017-06-30] MEDS ORDERED: Ibuprofen TAB* 800 MG PO ONE (10:10)
--- NOTE | 2017-06-30 10:15 | ED ---
Upper Extremity Pain - HPI Summary HPI Summary: [id number] patient here with left index finger injury last night. He reports he was attempting to catch a falling box of pasta from the cupboard when he accidentally swung his hand and jammed his left index finger into a cupboard door. Has had some pain and stiffness with mild swelling here since. Persisted so decided to come in to get this assessed. Has not tried ice nor ibuprofen prior to arrival. Denies numbness, tingling, weakness. No previous injury to this hand that he recalls. - History of Current Complaint Chief Complaint: EDExtremityUpper Stated Complaint: FINGER PAIN Time Seen by Provider: 06/30/17 09:48 Hx Obtained From: Patient - Allergies/Home Medications Allergies/Adverse Reactions: Allergies Allergy/AdvReac Type Severity Reaction Status Date / Time No Known Allergies Allergy Verified 06/30/17 09:26 PMH/Surg Hx/FS Hx/Imm Hx Previously Healthy: Yes Endocrine/Hematology History: Denies: Hx Anticoagulant Therapy, Hx Blood Disorders GI History: Denies: Other GI Disorders History: Denies: Other Problems/Disorders Musculoskeletal History: Denies: Other Musculoskeletal History Sensory History: Reports: Hx Contacts or Glasses Denies: Hx Hearing Aid Opthamlomology History: Reports: Hx Contacts or Glasses Neurological History: Reports: Hx Headaches - CLUSTER HEADACHES Psychiatric History: Reports: Hx Anxiety, Hx Depression, Hx Inpatient Treatment , Hx Community Mental Health Tx, Hx Bipolar Disorder, Hx of Violent Episodes Against Others, Hx Substance Abuse - Early 20s Denies: Hx Eating Disorder, Hx Suicide Attempt - "Close" - Surgical History Surgery Procedure, Year, and Place: TONSILLECTOMY A CHILD Hx Anesthesia Reactions: No Infectious Disease History: No Infectious Disease History: Denies: Traveled Outside the [place] in Last 30 Days - Family History Known Family History: Positive: Other - Alcohol abuse (brother and uncle) - Social History Occupation: Employed Full-time - [employer] Lives: With Family - Alcohol Use: None 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 w/ bipolar d/o Hx Tobacco Use: Yes Smoking Status (MU): Current Every Day Smoker Amount Used/How Often: 1/4 PPD Length of Time of Smoking/Using Tobacco: 10 YRS Have You Smoked in the Last Year: No Review of Systems Constitutional: Negative Positive: no symptoms reported Positive: Arthralgia, Decreased ROM, Edema Positive: Bruising Neurological: Negative Psychological: Normal All Other Systems Reviewed And Are Negative: Yes Physical Exam Triage Information Reviewed: Yes Vital Signs On Initial Exam: Initial Vitals Temp Pulse Resp BP Pulse Ox 97.6 F 115 14 134/80 98 06/30/17 09:26 06/30/17 09:26 06/30/17 09:26 06/30/17 09:26 06/30/17 09:26 Vital Signs Reviewed: Yes Appearance: Positive: Well-Appearing, No Pain Distress, Well-Nourished Skin: Positive: Warm, Skin Color Reflects Adequate Perfusion, Dry - no skin breadkdown nor mine ecchymosis compared to Rt index finger but he does have mild edema about the DIP joint of Lt index finger - limted ROM DIP and PIP joints here d/t pain - they are also TTP - no gross deformity; MCP NTTP and moving well - no other areas of pain in hand/phalanges Head/Face: Positive: Normal Head/Face Inspection Eyes: Positive: EOMI ENT: Positive: Hearing grossly normal Respiratory/Lung Sounds: Positive: Breath Sounds Present Cardiovascular: Positive: Pulses are Symmetrical in both Upper and Lower Extremities Musculoskeletal: Positive: Other - as above Neurological: Positive: Normal, Sensory/Motor Intact, Alert, Oriented to Person Place, Time, CN Intact II-III Psychiatric: Positive: Anxious - but plesant and cooperative Diagnostics - Vital Signs Vital Signs Temp Pulse Resp BP Pulse Ox 06/30/17 09:26 97.6 F 115 14 134/80 98 - Laboratory Lab Statement: Any lab studies that have been ordered have been reviewed, and results considered in the medical decision making process. Course/Dx - Course Course Of Treatment: LT index finger x-ray report and image reveal no acute findings. - Diagnoses Provider Diagnoses: Sprain of left index finger Discharge - Sign-Out/Discharge Documenting (check all that apply): Discharge - Discharge Plan Condition: Stable Disposition: HOME Patient Education Materials: Kerry Cote (ED) Forms: *Work Release Referrals: Km Fishman MD [Primary Care Provider] - Additional Instructions: REST, ICE, ELEVATE AND KEEP SPLINT CLEAN, DRY AND IN PLACE MOST OF THE TIME - MAY REMOVE TO SHOWER, BUT BE CAUTIOUS WITH/AVOID USING EFFECTED FINGER TO REDUCE PAIN AND PREVENT PROLONGATION OF INJURY You may take ibuprofen (600mg every 6 hours with food) alternating with acetaminophen (650mg every 6 hours) as needed for swelling/pain Follow-up with PCP next week if symptoms are not improving. *If you develop numbness, tingling, weakness, swelling or skin discoloration, remove splint and elevate arm for 20 minutes. If symptoms persist, return to ED - Billing Disposition and Condition Condition: STABLE Disposition: HOME
--- NOTE | 2017-06-30 10:16 | RAD ---
HISTORY: Left second finger injury COMPARISONS: September 06, 2013 VIEWS: 3, Frontal, lateral, and oblique views of the second digit of the left hand FINDINGS: BONE DENSITY: Normal. BONES: There is no displaced fracture. JOINTS: There is no arthropathy. ALIGNMENT: There is no dislocation. SOFT TISSUES: Unremarkable. OTHER FINDINGS: None. IMPRESSION: NO ACUTE OSSEOUS INJURY. IF SYMPTOMS PERSIST, RECOMMEND REPEAT IMAGING.
[2017-06-30 10:31] VITALS: BP 138/73
== END 2017-06-30 10:30 | disposition home or self-care (01) ==
LOC: ED 09:24
DX: S63.611A Unspecified sprain of left index finger, initial encounter (principal); W22.8XXA Striking against or struck by other objects, initial encounter; Y92.000 Kitchen of unspecified non-institutional (private) residence as the place of occurrence of the external cause; F17.210 Nicotine dependence, cigarettes, uncomplicated
CPT/HCPCS: 73140; 99281

== ENCOUNTER 2017-12-14 10:10 | Inpatient (IN) | payer BC ==
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
[2017-12-14 10:47] LABS: ABS Basophils 0.1 10^3/ul (0-0.2); ABS Eosinophils 0.7 10^3/ul (0-0.6); ABS Lymphocytes 1.8 10^3/ul (1.0-4.8); ABS Monocytes 0.9 10^3/ul (0-0.8); ABS Neutrophils 5.9 10^3/ul (1.5-7.7); ABS Nucleated RBC 0 10^3/ul; Eosinophil % 7.4 % (0-6); Hematocrit 43 % (42-52); Hemoglobin 14.4 g/dl (14.0-18.0); Lymphocyte % 19.6 % (25-47); Mean Corpuscular HGB Conc 34 g/dl (31-36); Mean Corpuscular Hemoglobin 29 pg (27-31); Mean Corpuscular Volume 87 fL (80-94); Mean Platelet Volume 8.5 um3 (7.4-10.4); Nucleated Red Blood Cells % 0.1; Platelet Count 238 10^3/ul (150-450); Red Blood Count 4.91 10^6/ul (4.00-5.40); Red Cell Distribution Width 14 % (10.5-15); White Blood Count 9.4 10^3/ul (3.5-10.8)
[2017-12-14 10:49] LABS: Urine Appearance Cloudy; Urine Blood Negative (Negative); Urine Color Yellow; Urine Ketones Negative (Negative); Urine Protein Negative (Negative); Urine Specific Gravity 1.012 (1.010-1.030); Urine Urobilinogen Negative (Negative)
[2017-12-14 11:01] LABS: EGFR Non-African American 87.4 (>60)
--- OUTSIDE RECORDS SUMMARY | 2017-12-14 11:11 | XMS REPORT ---
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 Active Onset: 02/12/2017 Lack or loss of sexual desire Km Fishman M.D. Active Onset: 12/24/2013 Bipolar disorder Km Fishman M.D. Active Family History Date Family Member(s) Problem(s) Comments Father Unremarkable Mother Hypercholesterolemia Number of Siblings Siblings: 3 All siblings are well Text Input both parents with high cholesterolno early cad gf age 86 mi Social History Type Date Description Comments Marital Status Patient is General relocated from [place], moving back to [employer] [place] [employer] Cigarette Use Former Cigarette Smoker ETOH Use Occasionally consumes alcohol Recreational Drug Use Denies Drug Use Smoking Patient is a current smoker, smokes every day Daily Caffeine Consumes on average 3 cups of coffee per day Exercise Type/Frequency Current active job Allergies, Adverse Reactions, Alerts Date Description Reaction Status Severity Comments 11/22/2008 NKDA active Medications Medication Date Status Form Strength Qnty SIG Indications Ordering Provider Levothyroxine 02/24/ Active Tablets 25mcg 90tab 1 by mouth Km Cisneros 2017 s every day Keke Fishman Zyprexa / Active Tablets 10mg 90tab 1 By Mouth Km F. 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 2009 - s Kye, 09/11/ M.DKarlene 2013 Xanax 07/04/ Hx Tablets 0.25mg 60tab 1-2 tabs po Km F. 2009 - s tid prn Kye, 09/11/ anxiety M.DKarlene 2013 Amitriptyline 07/04/ Hx Tablets 25mg 60tab 2 po qhs Km F. HCL 2009 - s Shallish, 10/12/ M.D. 2009 Amitriptyline 11/23/ Hx Tablets 10mg 60tab 1-2 po at Rupinder HCL 2008 - s hs [facility], 07/04/ Afnp-C 2009 Propranolol HCL / Hx Tablets 20mg 60tab 1 po bid Rupinder 0000 - s for [facility], 11/23/ migraine Afnp-C 2008 prevention Simvastatin / Hx Tablets 20mg 30tab take 1 Unknown 0000 - s tablet at 11/29/ bedtime 2008 Hydrocodone/Apap / Hx Tablets 5-500mg 30tab 1 po q 6 Rupinder 0000 - s hrs prn for [facility], 07/04/ pain Afnp-C 2009 dispense thirty Zoloft / Hx Tablets 50mg 1 tab qd Unknown - 2009 Hydroxyzine HCL / Hx Tablets 10mg 1 tab bid Unknown 0000 - 2009 Amitriptyline 00/ Hx Tablets 50mg 90tab one tablet Unknown HCL 0000 - s po qAM/ 1 PO QHS 2013 Gabapentin 00/ Hx Capsules 300mg 240ca 1 Cap po Unknown 0000 - ps qid 2013 [place] 00/ Hx Tablets 300mg 60tab 2 po qhs Unknown Carbonate ER 0000 - ER s 2016 Lamictal 00/ Hx Tablets 150mg 30tab 1.5 po qd Unknown 0000 - s 2016 Seroquel XR / Hx Tablets 150mg 30tab take 1.5 Unknown 0000 - ER 24HR s by mouth at 12/24/ bedtime 2013 Neurontin / Hx Capsules 100mg 1 by mouth Unknown 0000 - at bedtime 2016 Klonopin / Hx Tablets 1mg qid Unknown 0000 - 2016 [place] 00/ Hx Capsules 300mg 2 in am and Unknown Carbonate 0000 - 2 in pm 2016 Mirtazapine / Hx Tablets 15mg 1 by mouth Unknown 0000 - every night 02/12/ at bedtime 2016 Desvenlafaxine / Hx Tablets 50mg 1 po qd Unknown ER 0000 - ER 24HR 2016 Cialis / Hx Tablets 5mg 1 by mouth Unknown 0000 - every day 2017 Medications Administered in Office Medication Date Status Form Strength Qnty SIG Indications Ordering Provider TB Intradermal Administered Injection Km Fishman M.D. Vital Signs Date Vital Result Comment 11/26/2017 BP Systolic 120 mmHg BP Diastolic 78 mmHg Heart Rate 100 /min Body Temperature 98.8 F Respiratory Rate 16 /min Height 69 inches 5'9" Weight 164.25 lb BMI (Body Mass Index) 24.3 kg/m2 04/30/2017 BP Systolic 116 mmHg BP Diastolic 60 mmHg Heart Rate 66 /min Body Temperature 99.0 F Respiratory Rate 16 /min Height 69 inches 5'9" Weight 184.00 lb BMI (Body Mass Index) 27.2 kg/m2 02/12/2017 BP Systolic 122 mmHg BP Diastolic 64 mmHg Heart Rate 72 /min Body Temperature 97.5 F Respiratory Rate 16 /min Height 69 inches 5'9" Weight 170.50 lb BMI (Body Mass Index) 25.2 kg/m2 10/31/2016 BP Systolic 110 mmHg BP Diastolic 64 mmHg Heart Rate 96 /min Body Temperature 98.7 F Respiratory Rate 16 /min Height 69 inches 5'9" Weight 145.00 lb BMI (Body Mass Index) 21.4 kg/m2 06/29/2016 BP Systolic 100 mmHg BP Diastolic 70 mmHg Heart Rate 60 /min Body Temperature 99.0 F Respiratory Rate 16 /min Height 69 inches 5'9" Weight 152.00 lb BMI (Body Mass Index) 22.4 kg/m2 12/24/2013 BP Systolic 92 mmHg BP Diastolic 62 mmHg Heart Rate 62 /min Body Temperature 97.5 F Respiratory Rate 15 /min Height 69 inches 5'9" Weight 154.00 lb BMI (Body Mass Index) 22.7 kg/m2 11/24/2013 BP Systolic 102 mmHg BP Diastolic 60 mmHg Heart Rate 60 /min Respiratory Rate 16 /min Height 69 inches 5'9" Weight 157.00 lb BMI (Body Mass Index) 23.2 kg/m2 09/15/2013 BP Systolic 118 mmHg BP Diastolic 70 mmHg Heart Rate 68 /min Body Temperature 98.1 F Height 69 inches 5'9" Weight 142.00 lb BMI (Body Mass Index) 21.0 kg/m2 09/11/2013 BP Systolic 110 mmHg BP Diastolic 62 mmHg Heart Rate 94 /min Body Temperature 97.5 F Respiratory Rate 20 /min Height 69 inches 5'9" Weight 149.00 lb BMI (Body Mass Index) 22.0 kg/m2 10/12/2009 BP Systolic 120 mmHg BP Diastolic 70 mmHg Heart Rate 100 /min Body Temperature 98.8 F Respiratory Rate 20 /min Height 69 inches 5'9" Weight 149.00 lb BMI (Body Mass Index) 22.0 kg/m2 07/21/2009 BP Systolic 100 mmHg BP Diastolic 60 mmHg Heart Rate 94 /min Height 69 inches 5'9" Weight 141.00 lb BMI (Body Mass Index) 20.8 kg/m2 07/04/2009 BP Systolic 116 mmHg BP Diastolic 66 mmHg Heart Rate 80 /min Body Temperature 99.4 F Respiratory Rate 16 /min Weight 142.00 lb 11/22/2008 BP Systolic 100 mmHg BP Diastolic 60 mmHg Heart Rate 108 /min Body Temperature 97.3 F Height 69 inches 5'9" Weight 140.00 lb BMI (Body Mass Index) 20.7 kg/m2 Results Test Date Test Result H/L Range Note Laboratory test finding 04/30/2017 TSH 3.03 mIU/L 0.50-6.00 Free T4 0.90 ng/dL 0.75-1.54 Comprehensive Metabolic Prof 02/12/2017 Sodium 138 mEq/L 134-149 Potassium 4.5 mEq/L 3.6-5.5 Chloride 106 mEq/L 94-112 Carbon Dioxide 22 mEq/L 21-32 Glucose 77 mg/dL 70-105 BUN 14 mg/dL 6-26 Creatinine 0.9 mg/dL 0.6-1.4 BUN/Creat Ratio 15.6 CALC 8.0-36.0 Calcium 10.2 mg/dL 8.6-10.2 Total Protein 7.7 g/dL 6.4-8.3 Albumin 5.0 g/dL 3.8-5.5 Globulin 2.7 g/dL 2.0-4.8 A/G Ratio 1.9 CALC 0.6-2.3 Alk. Phosphatase 49 U/L 22-95 Alt (SGPT) 52 U/L High 7-35 Ast (Sgot) 34 U/L 5-34 Total Bilirubin 0.2 mg/dL 0.2-1.3 GFR Non- >60 ml/min/1.73m^ >=60 GFR >60 ml/min/1.73m^ >=60 Laboratory test finding 02/12/2017 TSH 7.64 mIU/L High 0.50-6.00 1 CBC Electronic (Fma) 02/12/2017 WBC 9.8 High 3.6-9.6 RBC 4.62 3.90-5.70 Hemoglobin (Fma/CMC/CTX) 13.7 g/dL 12.1 - 17.2 Hematocrit (Fma/CMC/CTX) 40.9 % 36.1 - 50.3 Platelets 233 10^3/ul 150-400 Lymph% 25.6 % 17.0-48.0 Mixed% 5.8 Neutrophils % 68.6 Mean Corpuscular Vol 89 82.2-97.4 Mean Corpuscular Hemoglobin 29.6 27.6-33.3 Mean Corpuscular Hemo Concen 33.4 32.0-36.0 RDW 14.4 High 11.6-13.7 Mean Platelet Volume 7.6 5.5-11.0 Laboratory test finding 02/12/2017 [place] 0.55 mmol/L Low 0.6-1.2 2 Testosterone Free & 02/12/2017 Free Testosterone ng/dl 4.17 ng/dL 4.46- 17.1 3 Total Testosterone 298 ng/dL 240-950 4 CBC Auto Diff 10/27/2016 White Blood Count 10.2 10^3/uL 3.5-10.8 Red Blood Count 4.75 10^6/uL 4.0-5.4 Hemoglobin 14.0 g/dL 14.0-18.0 Hematocrit 43 % 42-52 Mean Corpuscular Volume 90 fL 80-94 Mean Corpuscular Hemoglobin 29 pg 27-31 Mean Corpuscular HGB Conc 33 g/dL 31-36 Red Cell Distribution Width 13 % 10.5-15 Platelet Count 174 10^3/uL 150-450 Mean Platelet Volume 10 um3 7.4-10.4 Abs Neutrophils 7.2 10^3/uL 1.5-7.7 Abs Lymphocytes 1.8 10^3/uL 1.0-4.8 Abs Monocytes 0.6 10^3/uL 0-0.8 Abs Eosinophils 0.5 10^3/uL 0-0.6 Abs Basophils 0.1 10^3/uL 0-0.2 Abs Nucleated RBC 0.01 10^3/uL Granulocyte % 70.5 % 38-83 Lymphocyte % 17.9 % Low 25-47 Monocyte % 6.1 % 1-9 Eosinophil % 4.5 % 0-6 Basophil % 1.0 % 0-2 Nucleated Red Blood Cells % 0.1 Urine Drug SCR ED & 10/27/2016 Amphetamine Ur Screen None Detected None Detect Pain Clinic Barbiturates Urine Screen None Detected None Detect Benzodiazepine Urine Screen None Detected None Detect Urine Cannabinoids Screen Presumptive Posi <SEE NOTE> None Detect 5 Urine Cocaine Screen None Detected None Detect Urine Opiates Screen None Detected None Detect Urine Phencyclidine Screen None Detected None Detect 6 Urinalysis Profile 10/27/2016 Urine Color Yellow Urine Appearance Clear Urine Specific Alpine 1.004 Low 1.010-1.030 Urine pH 7.0 5-9 Urine Urobilinogen Negative Negative Urine Ketones Negative Negative Urine Protein Negative Negative Urine Leukocytes Trace Negative Urine Blood Negative Negative Urine Nitrite Negative Negative Urine Bilirubin Negative Negative Urine Glucose Negative Negative Urine White Blood Cell Trace(0-5/hpf) Absent Urine Red Blood Cell Absent Absent Urine Bacteria Absent Absent Comp Metabolic Panel 10/27/2016 Sodium 136 mmol/L 133-145 Potassium 3.7 mmol/L 3.5-5.0 Chloride 105 mmol/L 101-111 Co2 Carbon Dioxide 23 mmol/L 22-32 Anion Gap 8 mmol/L 2-11 Glucose 93 mg/dL 70-100 Blood Urea Nitrogen 13 mg/dL 6-24 Creatinine 1.02 mg/dL 0.67-1.17 BUN/Creatinine Ratio 12.7 8-20 Calcium 9.3 mg/dL 8.6-10.3 Total Protein 6.8 g/dL 6.4-8.9 Albumin 4.4 g/dL 3.2-5.2 Globulin 2.4 g/dL 2-4 Albumin/Globulin Ratio 1.8 1-3 Total Bilirubin 0.60 mg/dL 0.2-1.0 Alkaline Phosphatase 40 U/L 34-104 Alt 26 U/L 7-52 Ast 26 U/L 13-39 Egfr Non- 80.9 >60 Egfr 104.0 >60 7 Laboratory test finding 10/27/2016 [place] 0.62 mmol/L 0.6-1.2 Acetaminophen < 15 g/mL 8 Alcohol < 10 mg/dL <10 Salicylate < 2.50 mg/dL <30 TSH (Thyroid Stim Horm) 2.03 mcIU/mL 0.34-5.60 Urine Culture And Sensitivities SEE RESULT BELOW 9 Laboratory test finding 03/14/2014 Acetaminophen < 15 g/mL 10 Alcohol < 10 mg/dL <10 Salicylate < 2.50 mg/dL <30 TSH (Thyroid Stimulating Horm) 4.17 IU/mL 0.34-5.60 [place] 0.13 mmol/L Low 0.6-1.2 Comp Metabolic Panel 03/14/2014 Sodium 138 mmol/L 133-145 Potassium 3.8 mmol/L 3.5-5.0 Chloride 107 mmol/L 101-111 Co2 Carbon Dioxide 25 mmol/L 22-32 Anion Gap 6 mmol/L 2-11 Glucose 105 mg/dL High 70-100 Blood Urea Nitrogen 12 mg/dL 6-24 Creatinine 1.01 mg/dL 0.67-1.17 BUN/Creatinine Ratio 11.9 8-20 Calcium 9.0 mg/dL 8.6-10.3 Total Protein 7.1 g/dL 6.4-8.9 Albumin 4.6 g/dL 3.2-5.2 Globulin 2.5 g/dL 2-4 Albumin/Globulin Ratio 1.8 1-3 Total Bilirubin 0.30 mg/dL 0.2-1.0 Alkaline Phosphatase 44 U/L 34-104 Alt 20 U/L 7-52 Ast 20 U/L 13-39 Egfr Non- 83.1 >60 Egfr 106.9 >60 11 CBC Auto Diff 03/14/2014 White Blood Count 9.2 10^3/uL 4.8-10.8 Red Blood Count 4.98 10^6/uL 4.0-5.4 Hemoglobin 14.5 g/dL 14.0-18.0 Hematocrit 44 % 42-52 Mean Corpuscular Volume 88 fL 80-94 Mean Corpuscular Hemoglobin 29 pg 27-31 Mean Corpuscular HGB Conc 33 g/dL 31-36 Red Cell Distribution Width 13 % 10.5-15 Platelet Count 217 10^3/uL 150-450 Mean Platelet Volume 9 um3 7.4-10.4 Abs Neutrophils 5.5 10^3/uL 1.5-7.7 Abs Lymphocytes 2.4 10^3/uL 1.0-4.8 Abs Monocytes 0.8 10^3/uL 0-0.8 Abs Eosinophils 0.4 10^3/uL 0-0.6 Abs Basophils 0.1 10^3/uL 0-0.2 Abs Nucleated RBC 0.01 10^3/uL Granulocyte % 60.1 % 38-83 Lymphocyte % 25.8 % 25-47 Monocyte % 8.8 % 1-9 Eosinophil % 4.5 % 0-6 Basophil % 0.8 % 0-2 Nucleated Red Blood Cells % 0.1 Urine Drug SCR ED & 03/14/2014 Amphetamine Ur Screen None Detected None Detect Pain Clinic Barbiturates Urine Screen None Detected None Detect Benzodiazepine Urine Screen None Detected None Detect Urine Cannabinoids Screen Presumptive Posi <SEE NOTE> None Detect 12 Urine Cocaine Screen None Detected None Detect Urine Opiates Screen None Detected None Detect Urine Phencyclidine Screen None Detected None Detect 13 Urinalysis Profile 03/14/2014 Urine Color Yellow Urine Appearance Cloudy Urine Specific Alpine 1.014 1.010-1.030 Urine pH 7.0 5-9 Urine Urobilinogen Negative Negative Urine Ketones Negative Negative Urine Protein Negative Negative Urine Leukocytes Negative Negative Urine Blood Negative Negative Urine Nitrite Negative Negative Urine Bilirubin Negative Negative Urine Glucose Negative Negative Lipid Profile 11/28/2013 Cholesterol 203 mg/dL High 120-200 Triglycerides 144 mg/dL 30-200 HDL Cholesterol 41 mg/dL 30-70 LDL (Calculated) 133 CALC High 0-129 VLDL Cholesterol 29 mg/dL 0-50 HDL Risk Factor 5.0 CALC High 0.0-4.4 Comprehensive Metabolic Prof 11/28/2013 Sodium 143 mEq/L 134-149 Potassium 3.9 mEq/L 3.6-5.5 Chloride 101 mEq/L 94-112 Carbon Dioxide 26 mEq/L 21-32 Glucose 86 mg/dL 70-105 BUN 14 mg/dL 6-26 Creatinine 1.0 mg/dL 0.6-1.4 BUN/Creat Ratio 14.0 CALC 8.0-36.0 Calcium 9.6 mg/dL 8.6-10.2 Total Protein 7.5 g/dL 6.3-8.1 Albumin 5.0 g/dL 3.8-5.5 Globulin 2.5 g/dL 2.0-4.8 A/G Ratio 2.0 CALC 0.6-2.3 Alk. Phosphatase 45 U/L 22-95 Alt (SGPT) 19 U/L 7-35 Ast (Sgot) 23 U/L 5-34 Total Bilirubin 0.6 mg/dL 0.2-1.3 Laboratory test finding 11/28/2013 TSH 2.53 mIU/L 0.50-6.00 14 Free T4 0.90 ng/dL 0.75-1.54 CBC Electronic (a) 11/28/2013 WBC 7.1 3.6-9.6 RBC 5.08 3.90-5.70 Hemoglobin (Fma/CMC/CTX) 15.1 g/dL 12.1 - 17.2 Hematocrit (Fma/CMC/CTX) 45.0 % 36.1 - 50.3 Platelets 206 10^3/ul 150-400 Lymph% 37.4 % 17.0-48.0 Mixed% 5.2 Neutrophils % 57.4 Mean Corpuscular Vol 89 82.2-97.4 Mean Corpuscular Hemoglobin 29.7 27.6-33.3 Mean Corpuscular Hemo Concen 33.5 32.0-36.0 RDW 13.4 11.6-13.7 Mean Platelet Volume 7.2 5.5-11.0 Comprehensive Metabolic Prof 07/04/2009 Albumin 4.8 g/dL 3.8-5.5 Alk. Phos. 49 U/L 22-95 Alt (SGPT) 24 U/L 10-40 Ast (Sgot) 23 U/L 5-34 BUN 13 mg/dL 6-26 Calcium 9.7 mg/dL 8.6-10.2 Chloride 99 mEq/L 94-112 Creatinine 1.0 mg/dL 0.6-1.4 Carbon Dioxide 25 mEq/L 21-32 Glucose 94 mg/dL 70-105 Sodium 143 mEq/L 134-149 Total Bilirubin 0.2 mg/dL 0.2-1.3 Total Protein 7.0 g/dL 6.3-8.1 Potassium 4.0 mEq/L 3.6-5.5 Globulin 2.2 g/dL 2.0-4.8 A/G Ratio 2.2 Calc 0.6-2.2 BUN/Creat Ratio 14.0 Calc 8.0-36.0 Laboratory test finding 07/04/2009 Free T4 0.98 ng/dL 0.75-1.54 TSH 2.35 mIU/L 0.50-6.00 CBC ([facility]) 07/04/2009 WBC 9.8 High 3.6-9.6 RBC 5.23 3.90-5.70 Hemoglobin (Fma/CMC/CTX) 16.0 g/dL 12.1 - 17.2 Hematocrit (a/CMC/CTX) 47.4 % 36.1 - 50.3 Mean Corpuscular Vol 90.6 82.2-97.4 Mean Corpuscular Hemaglobin 30.6 27.6-33.3 Mean Corpuscular Hemo Concen 33.8 33.0-36.0 Platelets 215 10^3/ul 150-400 Lymph% 27.1 20.5-51.1 Mixed% 10.6 Neutrophils % 62.3 RDW 13.4 11.6-13.7 Mean Platelet Volume 13.2 High 7.4-10.4 Ua - Micro ([facility]) 07/04/2009 Appearance clear Color yellow Glucose, Urine (Fma/CMC/CTX) neg Bilirubin neg Ketones neg SP Grav 1.010 Blood neg PH 6.5 Protein neg Urobil 0.2 Nitrite neg Leukocytes (Fma/CMC/Centrex) neg Hyaline - /Lpf Granular - /Lpf WBC (Fma,Centrex) 0-1 RBC 0-1 Mucus (Fma/CBC/Centrex) - /Lpf Epith - /Lpf Bacteria - /Hpf Amorphous (Fma/CMC/Centrex) - /Lpf Crystals, Fluid (Fma/CMC/CTX) - Z#Comments - Laboratory test 12/02/2008 [facility] Lab Results PREVIOUS LABS See Image Report finding Lipid Profile 11/22/2008 Cholesterol 186 mg/dL 120-200 15 HDL 53 mg/dL 30-70 15 Triglycerides 131 mg/dL 30-200 15 HDL Risk Factor 3.5 CALC Low 4.2-7.0 15 LDL (Calculated) 107 CALC 0-129 15 VLDL (Calculated) 26 mg/dL 0-50 15 Comprehensive Metabolic Prof 11/22/2008 Albumin 4.6 g/dL 3.8-5.5 15 Alk. Phos. 58 U/L 22-95 15 Alt (SGPT) 22 U/L 10-40 15 Ast (Sgot) 22 U/L 5-34 15 BUN 14 mg/dL 6-26 15 Calcium 9.3 mg/dL 8.6-10.2 15 Chloride 99 mEq/L 94-112 15 Creatinine 1.0 mg/dL 0.6-1.4 15 Carbon Dioxide 24 mEq/L 21-32 15 Glucose 90 mg/dL 70-105 15 Sodium 143 mEq/L 134-149 15 Total Bilirubin 0.2 mg/dL 0.2-1.3 15 Total Protein 7.1 g/dL 6.3-8.1 15 Potassium 4.6 mEq/L 3.6-5.5 15 Globulin 2.5 g/dL 2.0-4.8 15 A/G Ratio 1.8 Calc 0.6-2.2 15 BUN/Creat Ratio 14.3 Calc 8.0-36.0 15 Complete Blood Count 11/22/2008 WBC 7.6 x10^3/uL 3.6-9.6 15 Gran# 5.0 x10^3/uL 1.5-7.2 15 Gran% 65.2 % 42.2-75.2 15 HCT 46 % 36-50 15 HGB 15.6 g/dL 12.1-17.2 15 Lymph# 2.2 x10^3/uL 0.7-4.9 15 Lymph% 29.2 % 20.5-51.1 15 MCH 29.2 pg 27.6-33.3 15 MCV 85.4 fL 82.2-97.4 15 MCHC 34.1 g/dL 33.0-35.5 15 Mo# 0.4 x10^3/uL 0.1-0.9 15 Mo% 5.6 % 1.7-9.3 15 MPV 9.0 fL 7.4-10.4 15 PLT 229 x10^3/uL 150-400 15 RBC 5.34 x10^6/uL 3.90-5.70 15 RDW 13.5 % 11.6-13.7 15 1 RESULTS VERIFIED BY REPEAT ANALYSIS 2 [id number] FASTING 8 HOUR 2 serum pour offs from 2 red tops 3 ADDITIONAL INFORMATION Testing performed by [facility]. This test was developed and its performance characteristics determined by [facility] in a manner consistent with CLIA requirements. This test has not been cleared or approved by the U.S. Food and Drug Administration. 4 ADDITIONAL INFORMATION Testing performed by Liquid Chromatography-Tandem Mass Spectrometry (LC-MS/MS). This test was developed and its performance characteristics determined by [facility] in a manner consistent with CLIA requirements. This test has not been cleared or approved by the U.S. Food and Drug Administration. Test Performed by: [facility] [employer] - [facility] [address] [place] [address] 5 Presumptive Positive Presumptive positive results are unconfirmed. 6 The urine specimen was tested at the listed cutoffs: Drug class test level (ng/mL) Amphetamines 500 Barbiturates 200 Benzodiazepine metabolites 200 Cocaine metabolites 150 Cannabinoids 50 Opiates 300 Pcp 25 Specimen was received without chain of custody. Results should be used for medical purposes only. 7 Because ethnic data is not always readily available, this report includes an eGFR for both -Americans and non- Americans. The National Kidney Disease Education Program (NKDEP) does not endorse the use of the MDRD equation for patients that are not between the ages of 18 and 70, are , have extremes of body size, muscle mass, or nutritional status, or are non- or non-. According to the National Kidney Foundation, irrespective of diagnosis, the stage of the disease is based on the level of kidney function: Stage Description GFR(mL/min/1.73 m(2)) 1 Kidney damage with normal or decreased GFR 90 2 Kidney damage with mild decrease in GFR 60-89 3 Moderate decrease in GFR 30-59 4 Severe decrease in GFR 15-29 5 Kidney failure <15 (or dialysis) 8 Therapeutic concentration: <50 ug/mL Toxic concentration: >120 ug/mL 9 SEE RESULT BELOW Name: OSCAR OMER Ailny : [address]: Ebenezer Amor MD Acct: [id number] Unit: [id number] AGE: 41 Location: [place] [address] Re10/27/16 SEX: M Status: ADM IN SPEC: [id number] JIGNESH: 10/27/[address]: Rogelio Arciniega DO REQ: [id number] RECD: 10/27/16 STATUS: SIMEON MCKNIGHT DR: Km Fishman MD _ S[facility] ORDERED: Urine Culture Procedure Result Reported Site Urine Culture Final 10/29/16- 0751 ML No Growth (<1,000 CFU/mL) * ML - MAIN LAB ([facility]) . END OF REPORT * ML=Testing performed at Main Lab DEPARTMENT OF PATHOLOGY, [address] [place] [address] Lino Calderon M.D. Director [facility] # [id number] 10 Therapeutic concentration: <50 ug/mL Toxic concentration: >120 ug/mL 11 Because ethnic data is not always readily available, this report includes an eGFR for both -Americans and non- Americans. The National Kidney Disease Education Program (NKDEP) does not endorse the use of the MDRD equation for patients that are not between the ages of 18 and 70, are , have extremes of body size, muscle mass, or nutritional status, or are non- or non-. According to the National Kidney Foundation, irrespective of diagnosis, the stage of the disease is based on the level of kidney function: Stage Description GFR(mL/min/1.73 m(2)) 1 Kidney damage with normal or decreased GFR 90 2 Kidney damage with mild decrease in GFR 60-89 3 Moderate decrease in GFR 30-59 4 Severe decrease in GFR 15-29 5 Kidney failure <15 (or dialysis) 12 Presumptive Positive 13 The urine specimen was tested at the listed cutoffs: Drug class test level (ng/ml) Amphetamines 300 Barbituates 200 Benzodiazepine metabolites 200 Cocaine metabolites 300 Cannabinoids 25 Opiates 200 Pcp 25 This is a screening procedure. Positive results are not confirmed. Specimen was received without chain of custody. Results should be used for medical purposes only. 14 FASTING 15 FASTING Procedures Description No Information Encounters Type Date Location Provider CPT E/M Dx Office Visit 04/30/2017 10:40a Main Office Km Fishman M.D. 53807 F31.9 E03.9 Office Visit 02/12/2017 2:20p Main Office Km Fishman M.D. 75896 F31.9 F52.0 Office Visit 11/29/2016 9:30a [facility] Km Fishman M.D. 08545 Z11.1 Office Visit 10/31/2016 9:30a [place] [address] M77.00 Z72.0 Office Visit 06/29/2016 2:30p Main Office SHARIFA Harrison 86509 L05.01 Office Visit 12/24/2013 11:00a Main Office Km Fishman M.D. 12988 296.80 Office Visit 11/24/2013 7:20p Main Office Km Fishman M.D. 10313 296.80 272.4 Office Visit 09/15/2013 2:00p Main Office SHARIFA Harrison 60512 V58.32 906.1 E906.0 Office Visit 09/11/2013 9:30a [place] [address] E906.0 906.1 Office Visit 10/12/2009 2:20p Main Office Km Fishman M.D. 84930 300.00 311 Office Visit 07/21/2009 11:00a Main Office Km Fishman M.D. 11745 300.00 Office Visit 07/04/2009 2:40p [facility] Km Fishman M.D. 93215 300.00 783.21 Office Visit 11/22/2008 9:00a Main Office Blanca Slaughter- 97001 784.0 272.4 Plan of Care Future Appointment(s):12/10/2017 7:20 pm - Km Fishman M.D. at Main [id number]/26/2017 - Km Fishman M.D.F31.9 Bipolar disorder, unspecifiedComments:Patient has been getting counseling at the mental health clinic and will be seen tomorrow. He has had some occasional suicidal ideation but he does not have plan, and there are no guns in the home Hopefully he will get in for an emergency appointment with Dr. Culver at the mental health clinic , patient would like us to investigate other opportunities for psychiatric care. He does not feel he needs emergency room for evaluation at this time. I feel he will call us or go directly to the emergency room if he becomes increasingly suicidal
[2017-12-14] MEDS ORDERED: LORazepam TAB(*) 1 MG PO ONE (12:42)
[2017-12-14] MEDS ORDERED: Al Hydrox/Mg Hydrox/Simet LIQ* 30 ML UDC PO PRN (15:28)
[2017-12-14] MEDS ORDERED: Acetaminophen TAB* 325 MG PO PRN (15:28)
[2017-12-14] MEDS ORDERED: Mouth Piece, Nicotine* 1 EACH CARTRIDGE ONE (18:32)
[2017-12-14] MEDS: Nicotine Inhaler* 10 MG AMP INH PRN ×2 (18:33→21:27)
[2017-12-14] MEDS ORDERED: OLANzapine TAB* 10 MG PO SCH (21:00)
[2017-12-14] MEDS ORDERED: Lithium Carbonate TAB* 300 MG PO SCH (21:00)
[2017-12-14] MEDS: Levothyroxine TAB* 25 MCG TAB PO SCH (21:24)
[2017-12-14] MEDS: Vitamin THERAPEUTIC TAB PO SCH (21:24)
[2017-12-15] MEDS: Nicotine Inhaler* 10 MG AMP INH PRN ×7 (06:52→20:46)
[2017-12-15] MEDS: Nicotine GUM* 2 MG PO PRN ×6 (09:09→20:45)
--- NOTE | 2017-12-15 20:11 | HP ---
HISTORY AND PHYSICAL: DATE OF ADMISSION: 12/14/17 IDENTIFYING DATA: Mr. Nix is a 42-year-old , employed male, living with his and 3 children in [place], [place], who was brought in by police on 9.45 status and he was admitted on voluntary status because of suicidal ideation and inability to contract for safety. CHIEF COMPLAINT: "I have been real suicidal in the past month!" HISTORY OF PRESENT ILLNESS: The patient is known to the adult inpatient psychiatric unit from 2 previous inpatient psychiatric admissions. He has diagnoses of bipolar disorder and substance abuse and he is currently in outpatient care at [facility]. He relates that he was doing fairly well until about a month ago, when he started feeling depressed. He felt sad on most days for the most part of the day with occasional crying spells. He started sleeping poorly about 3 or 4 hours a night and felt extremely tired during the day, unmotivated. He lost interest in activities he previously enjoyed. He had recurrent thoughts of suicide and feelings of guilt, hopelessness, helplessness, and worthlessness. He had several conversation with his in which he expressed feeling depressed and having thoughts of suicide. He explained that he had been out of work, on medical leave by Dr. Dilma Culver because of his depressive symptoms. Yesterday , was scheduled to be his first day back to work. H said, he got up, got dressed , got in his car and started driving in rampart around the house and garden at a high rate of speed. At some point, he "took off, said he had thoughts of driving into a tree and killing himself." He drove back home, went into the house, grabbed his phone, got back in his car and he started driving towards the [facility] location where he works when he was intercepted by multiple law enforcement vehicles, alerted by his . He was put him in cuffs and driven to the emergency room of this hospital where he requested admission because he did not think he would be safe if discharged home. At previous admission, his relationship with his was extremely strained. The patient reports that they have been getting along better recently, that everything was going well and that he has no reason to feel depressed other than the fact that he is depressed and suicidal. He additionally endorses excessive worrying, irritability, muscle tension, occasional panic attacks. He reports having been compliant with taking prescribed medication. He also discloses that he had been smoking marijuana daily but he denies misusing his prescribed Adderall. REVIEW OF PSYCHIATRIC SYMPTOMS: The patient described past manic episodes with insomnia, decreased need for sleep, increased goal directedness, racing thoughts , pressured speech, grandiosity, and involvement in activities with potential for consequences, but for the past 6 weeks, he has felt consistently depressed. He denies psychotic symptoms. He denies obsessive thoughts, compulsive rituals. He reports childhood diagnosis of ADHD and endorses lifelong difficulty with inattention, hyperactivity and impulsivity. PAST PSYCHIATRIC HISTORY: This is the patient's 7th lifetime inpatient psychiatric admission since his first admission here in 2013. He had 2 subsequent admissions in [place], [place]. He then had an admission here in 2017 in similar circumstances, and his most recent admission was at [facility] in [place], [place] in November of 2016. Outpatient care is at [facility] with outpatient therapist, Dr. Dilma Culver , and with Community Mental Health nurse, Juan Jimenez RN. The patient is currently prescribed Adderall 10-30 mg p.o. b.i.d., olanzapine 15 mg p.o. at bedtime, but had only been taking 10 mg, and lithium 600 mg daily. SUICIDE/HOMICIDE HISTORY: He has never made any mine suicide attempt, but has had recurrent suicidal ideation, most frequently when he is driving, he has thoughts of crashing his car. He denies any history of self-injury or violence. He recalls previous trial of Vyvanse, Adderall XR were not effective. SUBSTANCE ABUSE HISTORY: The patient relates past issues with alcohol, but asserts that he has been sober for several months. He admits to smoking 1 to 2 bowls of marijuana daily to help with his mood and a pack of cigarettes daily. He denies the use of other illicit drugs or misuse of prescribed medications. PAST MEDICAL HISTORY: He denies any active medical problems and history of head trauma with loss of consciousness, seizures, or surgeries. He is followed at [facility], by Dr. Km Fishman. FAMILY HISTORY: Family history of bipolar disorder and polysubstance dependence in an uncle, who has attempted suicide several times. PERSONAL AND SOCIAL HISTORY: The patient is from [place], [place]. He grew up there, lived in [place] for 4 years before returning to this area. He has been for 3-1/2 years. He has a 3-year-old daughter and an 11- month-old son with his and they also have custody of his 's 11-year- old daughter. 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 He reports an improved relationship with his . He is educated to a Masters Degree in photography. REVIEW OF MEDICAL SYMPTOMS: Negative. PHYSICAL EXAMINATION GENERAL: He is a well-appearing, white male male, who does not appear to be in any acute physical distress. He is alert, oriented x3. ADMISSION VITAL SIGNS: Blood pressure is 123/85, pulse is 74, respirations 16, temp is 97.3. HEENT: Head atraumatic, normocephalic. Symmetrical eyes, PERRLA. Tympanic membrane intact. Sclerae anicteric. Conjunctivae clear. NECK: Trachea midline, freely mobile. No cervical lymphadenopathy. No nuchal rigidity. LUNGS: Clear to auscultation bilaterally. HEART: Regular rate and rhythm. S1, S2. No murmur, gallops, or rubs. BREAST EXAM: No mass or discharge. ABDOMEN: Soft, nontender. No masses, organomegaly or rebound tenderness. No scars noted. Active bowel sound in all 4 quadrant. EXTREMITIES: No pain or limitations in the range of movement. Pulses are equal and adequate in all 4 extremities. NEUROLOGIC: Cranial nerves II through XII intact. Cerebellar function intact. Muscle strength grade 5/5 in all 4 extremities. GENITAL: Exam not performed. RECTAL: Exam not performed. STRUCTURAL EXAM: The patient is examined in both supine and upright positions. No gross AP or lateral asymmetry. Gait and movement are within normal limits. SKIN: Skin texture, turgor, and pigmentation are within normal limits. LABORATORY DATA: On admission, CBC, complete metabolic panel, urinalysis are within normal limits. Urine toxicology screen is positive for amphetamines and cannabinoids. Trion level is 0.4. MENTAL STATUS EXAMINATION: Finds an averagely built 42-year-old white male, who with multiple tattoos on his torso and extremities. He presents as cooperative. He makes good eye contact. His speech is spontaneous, not pressured. His affect is constricted. Mood is depressed. Thoughts are linear and goal directed. No evidence of formal thought disorder, no overt delusions. He denied auditory or visual hallucinations. He endorses suicidal ideation, but he contracts to approaching staff if he is feeling unsafe. He denies homicidal ideation. Insight and judgement are fair. Impulse control is good in this setting. He is alert and oriented x3. SUMMARY: A 42-year-old male with history of substance abuse, multiple inpatient psychiatric hospitalizations, current outpatient care, previous diagnosis of bipolar disorder and substance abuse, who was brought in by police on 945 status, alerted by his that he was actively suicidal and driving his car at high rate of speed. He was admitted voluntarily. Medical history is unremarkable. There is a family history of bipolar disorder and polysubstance dependance and suicide attempt in an uncle. The patient's lithium level was subtherapeutic on admission rasing questions about compliance. He denied any stressors or precipitant for his current depressive episode. DIAGNOSTIC IMPRESSIONS: 1. Bipolar 1 disorder, current episode depressed, severe, without psychotic features. 2. Cannabis dependence. 3. Cluster B traits. TREATMENT PLAN: Admit to mental health unit, 15-minute checks, full code status. Legal status is voluntary. Initiate comprehensive, milieu, individual and group psychotherapeutic support. Medication management will involve adjusting the dose of lithium to yield therapeutic level and continuing trial of olanzapine and Adderall and conferring with his outpatient psychiatrist. Discharge planning will involve coordination of his aftercare with [facility]. [id number]/CPS #: [id number] OMEGA
[2017-12-15] MEDS: Levothyroxine TAB* 25 MCG TAB PO SCH (20:44)
[2017-12-15] MEDS: Lithium Carbonate TAB* 300 MG PO SCH (20:44)
[2017-12-15] MEDS: Vitamin THERAPEUTIC TAB PO SCH (20:45)
[2017-12-15] MEDS ORDERED: OLANzapine TAB* 5 MG PO SCH (21:00)
[2017-12-16] MEDS ORDERED: Amphetamine MIXED SALT TAB* 10 MG TAB PO SCH (07:00)
[2017-12-16] MEDS: Lithium Carbonate TAB* 300 MG PO SCH ×2 (08:17→21:45)
[2017-12-16] MEDS: Nicotine Inhaler* 10 MG AMP INH PRN ×6 (08:17→21:46)
[2017-12-16] MEDS: Nicotine GUM* 2 MG PO PRN ×5 (08:17→21:46)
--- NOTE | 2017-12-16 12:59 | PN ---
Subjective - Subjective Date of Service: 12/16/17 Service Type: 66812 Hosp care 25 min moderate complexity Subjective: Patient was seen by self, discussed with treatment team, chart was reviewed. Patient has been compliant with his medications, no reported side effects. Patient reports some improvement in severe depressive symptoms, hopeless, helpless and worthless and asking if he can try ECT. Patient reports that he has tried many antidepressant in the past but was discontinued as it did not help with depression. Patient sleeping has been disturbed. Patient was counseled about his marijuana use daily and that can worsen his mood symptoms. Patient reported that he was clean for about a month in a rehab and was stable on just Zyprexa 10 mg a day. Patient eating has been fair. Patient has been cooperative with staff. Patient behavior has been in control. Patient mood was anxious and dysphoric but better than when he was admitted. Patient reports that work stress has been substantial at [employer] delivery [employer] recently. Patient has been reporting no suicidal or homicidal ideation. No psychotic symptoms of delusions or hallucinations. Objective - Appearance Appearance: Healthy Appearing Dysmorphic Features: No Hygiene: Normal Grooming: Fairly Well Kept - Behavior Psychomotor Activities: Normal Exhibits Abnormal Movement: No - Attitude and Relatedness Attitude and Relatedness: Cooperative Eye Contact: Fair - Speech Quality: Unpressured Latencies: Normal Quantity: Terse - Mood Patient's Decription of Mood: "better" - Affect Observed Affect: Tense Affect Consistent with: Dysphoria - Thought Process Patient's Thought Process: Coherent Thought Content: No Passive Wish, No Suicidal Planning, No Homicidal Ideation, No Paranoid Ideation - Sensorium Experiencing Hallucinations: No, Sensorium is Clear Type of Hallucinations: Visual: No, Auditory: No, Command: No - Level of Consciousness Orientation: Yes Intact, Yes Orientated to Time, Yes Orientated to Place, Yes Orientated to Person - Impulse Control Impulse Control: Intact - Insight and Judgement Insight and Judgement: Fair - Group Participation Particating in Group Activities: Yes - Medication Management Medication Management Adherence: Yes Assessment - Assessment Merits Inpatient Hospitalization: For Immediate Safety, For Stabilization, For Discharge Planning Inpatient DSM-V Dx: F33.9 Clinical Impression: A 42-year-old male with history of substance abuse, multiple inpatient psychiatric hospitalizations, current outpatient care, previous diagnosis of bipolar disorder and substance abuse, who was brought in by police on 945 status, alerted by his that he was actively suicidal and driving his car at high rate of speed. He was admitted voluntarily. Medical history is unremarkable. There is a family history of bipolar disorder and polysubstance dependance and suicide attempt in an uncle. The patient's lithium level was subtherapeutic on admission raising questions about compliance. He denied any stressors or precipitant for his current depressive episodes. Plan - Plan Treatment Plan: Name: OSCAR OMER Birthdate: 1975 [id number] - Patient continues to be hospitalized due to recent suicidal thoughts with plan , depression, anxiety and impulsivity. - Patient's medications were adjusted after informed consent with reduction in Zyprexa to 7.5 mg HS and start of Remeron to help with depression and anxiety. Patient was continued with [place] 600mg BID. Will continue to monitor improvement and assess need for referring to ECT. - Patient will be monitored for improvement and side effects. Risk and benefits were discussed. - Patient was encouraged to continue his participation in the milieu, group and individual therapy. Medications: Current Medications Acetaminophen (Tylenol Tab*) 650 mg PO Q4H PRN PRN Reason: for pain; or Temp >101 F Al Hydrox/Mg Hydrox/Simethicone (Maalox Plus*) 30 ml PO Q4H PRN PRN Reason: INDIGESTION Levothyroxine Sodium (Synthroid Tab*) 25 mcg PO BEDTIME URIEL Last Admin: 12/15/17 20:44 Dose: 25 mcg [place] Carbonate ([place] Carbonate Tab*) 600 mg PO BID URIEL Last Admin: 12/16/17 08:17 Dose: 600 mg Mirtazapine (Remeron Tab*) 15 mg PO BEDTIME URIEL Multivitamins (Theragran Tab*) 1 tab PO BEDTIME URIEL Last Admin: 12/15/17 20:45 Dose: 1 tab Nicotine (Nicotine Inhaler*) 10 mg INH Q2H PRN PRN Reason: CRAVING Last Admin: 12/16/17 11:07 Dose: 10 mg Nicotine Polacrilex (Nicotine Gum*) 2 mg PO Q2H PRN PRN Reason: CRAVING Last Admin: 12/16/17 11:08 Dose: 2 mg Olanzapine (Zyprexa Tab*) 7.5 mg PO BEDTIME URIEL
[2017-12-16] MEDS ORDERED: OLANzapine TAB* 2.5 MG PO SCH ×2 (21:00)
[2017-12-16] MEDS ORDERED: Mirtazapine TAB* 15 MG PO SCH (21:00)
[2017-12-16] MEDS ORDERED: OLANzapine TAB* 5 MG PO SCH ×2 (21:00)
[2017-12-16] MEDS: Levothyroxine TAB* 25 MCG TAB PO SCH (21:45)
[2017-12-16] MEDS: Vitamin THERAPEUTIC TAB PO SCH (21:46)
[2017-12-17] MEDS: Nicotine GUM* 2 MG PO PRN ×2 (06:55→10:13)
[2017-12-17] MEDS: Nicotine Inhaler* 10 MG AMP INH PRN ×2 (06:55→10:13)
[2017-12-17 08:46] VITALS: BP 125/86
[2017-12-17] MEDS: Lithium Carbonate TAB* 300 MG PO SCH (08:59)
--- NOTE | 2017-12-17 13:43 | DS ---
Subjective - Subjective Service Types: [id number] [facility] Day Mgmt simple under 30 min Discharge Date: 12/17/17 Subjective: IDENTIFYING DATA: Mr. Nix is a 42-year-old , employed male, living with his and 3 children in [place], [place], who was brought in by police on 9.45 status and he was admitted on voluntary status because of suicidal ideation and inability to contract for safety. CHIEF COMPLAINT: "I have been real suicidal in the past month!" HISTORY OF PRESENT ILLNESS: The patient is known to the adult inpatient psychiatric unit from 2 previous inpatient psychiatric admissions. He has diagnoses of bipolar disorder and substance abuse and he is currently in outpatient care at [facility]. He relates that he was doing fairly well until about a month ago, when he started feeling depressed. He felt sad on most days for the most part of the day with occasional crying spells. He started sleeping poorly about 3 or 4 hours a night and felt extremely tired during the day, unmotivated. He lost interest in activities he previously enjoyed. He had recurrent thoughts of suicide and feelings of guilt, hopelessness, helplessness, and worthlessness. He had several conversation with his in which he expressed feeling depressed and having thoughts of suicide. He explained that he had been out of work, on medical leave by Dr. Dilma Culver because of his depressive symptoms. Yesterday, was scheduled to be his first day back to work. H said, he got up, got dressed, got in his car and started [place] around the house and garden at a high rate of speed. At some point, he "took off, said he had thoughts of driving into a tree and killing himself." He drove back home, went into the house, grabbed his phone, got back in his car and he started driving towards the [employer] [employer] [facility] location where he works when he was intercepted by multiple law enforcement vehicles, alerted by his . He was put him in cuffs and driven to the emergency room of this hospital where he requested admission because he did not think he would be safe if discharged home. At previous admission, his relationship with his was extremely strained. The patient reports that they have been getting along better recently, that everything was going well and that he has no reason to feel depressed other than the fact that he is depressed and suicidal. He additionally endorses excessive worrying, irritability, muscle tension, occasional panic attacks. He reports having been compliant with taking prescribed medication. He also discloses that he had been smoking marijuana daily but he denies misusing his prescribed Adderall. REVIEW OF PSYCHIATRIC SYMPTOMS: The patient described past manic episodes with insomnia, decreased need for sleep, increased goal directedness, racing thoughts, pressured speech, grandiosity, and involvement in activities with potential for consequences, but for the past 6 weeks, he has felt consistently depressed. He denies psychotic symptoms. He denies obsessive thoughts, compulsive rituals. He reports childhood diagnosis of ADHD and endorses lifelong difficulty with inattention, hyperactivity and impulsivity. PAST PSYCHIATRIC HISTORY: This is the patient's 7th lifetime inpatient psychiatric admission since his first admission here in 2013. He had 2 subsequent admissions in [place], [place]. He then had an admission here in 2017 in similar circumstances, and his most recent admission was at [facility] in [place], [place] in November of 2016. Outpatient care is at [facility] with outpatient therapist, Dr. Dilma Culver, and with Community Mental Health nurse, Juan Jimenez RN. The patient is currently prescribed Adderall 10-30 mg p.o. b.i.d., olanzapine 15 mg p.o. at bedtime, but had only been taking 10 mg , and lithium 600 mg daily. SUICIDE/HOMICIDE HISTORY: He has never made any mine suicide attempt, but has had recurrent suicidal ideation, most frequently when he is driving, he has thoughts of crashing his car. He denies any history of self-injury or violence. He recalls previous trial of Vyvanse, Adderall XR were not effective. SUBSTANCE ABUSE HISTORY: The patient relates past issues with alcohol, but asserts that he has been sober for several months. He admits to smoking 1 to 2 bowls of marijuana daily to help with his mood and a pack of cigarettes daily. He denies the use of other illicit drugs or misuse of prescribed medications. PAST MEDICAL HISTORY: He denies any active medical problems and history of head trauma with loss of consciousness, seizures, or surgeries. He is followed at [facility], by Dr. Km Fishman. FAMILY HISTORY: Family history of bipolar disorder and polysubstance dependence in an uncle, who has attempted suicide several times. PERSONAL AND SOCIAL HISTORY: The patient is from [place], [place]. He grew up there, lived in [place] for 4 years before returning to this area. He has been for 3 -1/2 years. He has a 3-year-old daughter and an [id number]-[id number] son with his and they also have custody of his 's 11-year-old daughter. 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 He reports an improved relationship with his . He is educated to a Masters Degree in photography. REVIEW OF MEDICAL SYMPTOMS: Negative. PHYSICAL EXAMINATION GENERAL: He is a well-appearing, white male male, who does not appear to be in any acute physical distress. He is alert, oriented x3. ADMISSION VITAL SIGNS: Blood pressure is 123/85, pulse is 74, respirations 16, temp is 97.3. HEENT: Head atraumatic, normocephalic. Symmetrical eyes, PERRLA. Tympanic membrane intact. Sclerae anicteric. Conjunctivae clear. NECK: Trachea midline, freely mobile. No cervical lymphadenopathy. No nuchal rigidity. LUNGS: Clear to auscultation bilaterally. HEART: Regular rate and rhythm. S1, S2. No murmur, gallops, or rubs. BREAST EXAM: No mass or discharge. ABDOMEN: Soft, nontender. No masses, organomegaly or rebound tenderness. No scars noted. Active bowel sound in all 4 quadrant. EXTREMITIES: No pain or limitations in the range of movement. Pulses are equal and adequate in all 4 extremities. NEUROLOGIC: Cranial nerves II through XII intact. Cerebellar function intact. Muscle strength grade 5/5 in all 4 extremities. GENITAL: Exam not performed. RECTAL: Exam not performed. STRUCTURAL EXAM: The patient is examined in both supine and upright positions. No gross AP or lateral asymmetry. Gait and movement are within normal limits. SKIN: Skin texture, turgor, and pigmentation are within normal limits. LABORATORY DATA: On admission, CBC, complete metabolic panel, urinalysis are within normal limits. Urine toxicology screen is positive for amphetamines and cannabinoids. St. Andrews level is 0.4. MENTAL STATUS EXAMINATION ON ADMISSION: Finds an averagely built 42-year-old white male, who with multiple tattoos on his torso and extremities. He presents as cooperative. He makes good eye contact. His speech is spontaneous, not pressured. His affect is constricted. Mood is depressed. Thoughts are linear and goal directed. No evidence of formal thought disorder, no overt delusions. He denied auditory or visual hallucinations. He endorses suicidal ideation, but he contracts to approaching staff if he is feeling unsafe. He denies homicidal ideation. Insight and judgement are fair. Impulse control is good in this setting. He is alert and oriented x3. SUMMARY: A 42-year-old male with history of substance abuse, multiple inpatient psychiatric hospitalizations, current outpatient care, previous diagnosis of bipolar disorder and substance abuse, who was brought in by police on 9.45 status, alerted by his that he was actively suicidal and driving his car at high rate of speed. He was admitted voluntarily. Medical history is unremarkable. There is a family history of bipolar disorder and polysubstance dependance and suicide attempt in an uncle. The patient's lithium level was subtherapeutic on admission rasing questions about compliance. He denied any stressors or precipitant for his current depressive episode. DIAGNOSTIC IMPRESSIONS ON ADMISSION: 1. Bipolar 1 disorder, current episode depressed, severe, without psychotic features. 2. Cannabis dependence. 3. Cluster B traits. Objective - Appearance Appearance: Healthy Appearing Dysmorphic Features: No Hygiene: Normal Grooming: Well Kept - Behavior Psychomotor Activities: Normal Exhibits Abnormal Movement: No - Attitude and Relatedness Attitude and Relatedness: Cooperative Eye Contact: Fair - Speech Quality: Unpressured Latencies: Normal Quantity: Appropriate - Mood Patient's Decription of Mood: "Good" - Affect Observed Affect: Fair Affect Consistent with: Euthymia - Thought Process Patient's Thought Process: Coherent Thought Content: No Passive Wish, No Suicidal Planning, No Homicidal Ideation, No Paranoid Ideation - Sensorium Experiencing Hallucinations: No, Sensorium is Clear Type of Hallucinations: Visual: No, Auditory: No, Command: No - Level of Consciousness Level of Consciousness: Alert Orientation: Yes Intact, Yes Orientated to Time, Yes Orientated to Place, Yes Orientated to Person - Impulse Control Impulse Control: Intact - Insight and Judgement Insight and Judgement: Fair - Medication Management Medication Management Adherence: Yes Treatment Course & Assessment Clinical Course & Impression: A 42-year-old male with history of substance abuse, multiple inpatient psychiatric hospitalizations, current outpatient care, previous diagnosis of bipolar disorder and substance abuse, who was brought in by police on 945 status , alerted by his that he was actively suicidal and driving his car at high rate of speed. He was admitted voluntarily. Medical history was unremarkable. There was a family history of bipolar disorder and polysubstance dependance and suicide attempt in an uncle. The patient's lithium level was subtherapeutic on admission raising questions about compliance and also requested for Adderall IR 30 mg BID stating that it was his outpatient dose. He denied any stressors or precipitant for his current depressive episodes. Patient was admitted to mental health unit on 15-minute checks, full code status. Legal status was voluntary. Milieu, individual and group psychotherapeutic supports were initiated. Medication management involved adjusting the dose of lithium to yield therapeutic level and continuing trial of olanzapine and Adderall and conferring with his outpatient psychiatrist. Patient's prescription monitoring for controlled substance were reviewed which was suggestive of stimulant abuse and ran out of it. Patient was recently switched from Adderall XR to IR 10 mg BID instead stated that he is taking 30 mg BID and requested for that. Patient was compliant with his medications until his stimulants were discontinued given his diffuclties with substance abuse and mood disorder. Patient appeared to be manipulative about his treatment, reported some improvement in severe depressive symptoms, hopeless, helpless and worthless, likely was quick recovering from stimulant abuse. But rationalizing that nothing has worked in the past and asking if he needs ECT. Patient reports that he has tried many antidepressant in the past but was discontinued as it did not help with depression. Patient sleeping has been disturbed. Patient was counseled about his marijuana use daily and that can worsen his mood symptoms. Patient reported that he was clean for about a month in a rehab and was stable on just Zyprexa 10 mg a day. Patient eating has been fair. Patient was cooperative with staff. Patient behavior was in control. Patient mood was stable and did not appear to be in any distress. 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 Patient was reporting no suicidal or homicidal ideation. No psychotic symptoms of delusions or hallucinations. Patient's medications were adjusted after informed consent with reduction in Zyprexa to 7.5 mg HS and start of Remeron to help with depression and anxiety. Patient was continued with St. Andrews 600mg BID. Patient did not take his St. Andrews or Remeron and stated that nothing works for his depression. Patient didnot appear to be depressed, mood was stable, behavior was in control. Patient was educated about needing clean period from any substance to reassess his mood symptoms and need for such procedures. As patient's depression can be due to his stimulant and cannabis abuse. Patient was educated about needing to go to a substance abuse treatment instead. Patient was manipulative and requested that he will like to be discharged but can technical report writer provide him with Adderall as it is his outpatient treatment. Patient was given psychoeducation again and that given substance abuse history and mood symptoms it is not appropriate at this time. Patient was offered voluntary stay but requested to be dsicharged and did not meet criteria for involuntary hospitalization. As patient was not a danger to self and others, caring for himself, appeared to be very comfortable on the unit, not restless, not manic, not psychotic, mood stable, no si/hi. Patient was discharged with plan to follow up outpatient treatment. Patient was counseled about substance abuse treatment. Merits Inpatient Hospitalization: No Clear for Discharge: Adequate Clinical Respons, Acceptable Safety Profile, Low Utility of Inpt Care Inpatient DSM-V Dx: F33.9 Discharge Planning - Discharge Planning Discharge Plan: Outpatient Follow Up Recommendations for Continuing Care: Medication Management, Psychotherapy, Substance Abuse Counseling Medications: Current Medications Levothyroxine Sodium (Synthroid Tab*) 25 mcg PO BEDTIME [facility] Last Admin: 12/16/17 21:45 Dose: [address] Andrews Carbonate (St. Andrews Carbonate Tab*) 600 mg PO BID [facility] Last Admin: 12/17/17 08:59 Dose: 600 mg Olanzapine (Zyprexa Tab*) 10 mg PO BEDTIME [facility] Discharge Planning: Prescriptions provided for discharge [x] Yes [] No Follow up care details as per social work arrangements. Patient response to discharge plan: [x] eager for discharge [] agreeable with discharge plan [] ambivalent about discharge [] disagrees with discharge today
== END 2017-12-17 13:16 | disposition home or self-care (01) | DRG 753 ==
LOC: ED 10:10 → BSU 15:30
PROVIDERS: ADMIT Psychiatry & Neurology Psychiatry; ATTEND Psychiatry & Neurology Psychiatry
CPT/HCPCS: 36415; 80053; 80061; 80178; 80307; 80320; 80329; 81003; 83036; 84443; 85025; 93005; A9270-GY; G0480

== ENCOUNTER 2018-12-08 22:06 | Emergency (ER) | payer BC ==
[2018-12-09] MEDS ORDERED: Diazepam TAB(*) 5 MG PO ONE (00:34)
[2018-12-09] MEDS ORDERED: Ketorolac INJ* 30 MG/ML 1 ML VIAL IM ONE (00:34)
--- NOTE | 2018-12-09 00:41 | ED ---
Back Pain - HPI Summary HPI Summary: Patient complains of sudden onset left lower back pain radiating into left inguinal crease and down left leg when lying down to go to bed tonight. 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 Patient is ambulatory with pain. Denies fever, cough, sore throat, CP, SOB, N/V /D, abdominal pain, change in urine, change in BM, penus or testicular symptoms. Denies IV drug use. States history of intermittent back pain, but never pain that has radiated down his leg. Denies urinary retention, incontinence of bowel, numbness tingling in left lower extremity. - History of Current Complaint Chief Complaint: EDExtremityLower Stated Complaint: LT LEG PAIN PER PT Time Seen by Provider: 12/09/18 00:14 Hx Obtained From: Patient Onset/Duration: Sudden Onset, Lasting Hours Onset/Duration: Started Hours Ago Timing: Constant Severity Initially: Severe Severity Currently: Severe Pain Intensity: 9 Pain Scale Used: 0-10 Numeric Character: Sharp, Throbbing, Spasmodic Aggravating Symptom(s): Movement, Bending Alleviating Symptom(s): Position Associated Signs And Symptoms: Positive: Negative - Allergies/Home Medications Allergies/Adverse Reactions: Allergies Allergy/AdvReac Type Severity Reaction Status Date / Time No Known Allergies Allergy Verified 12/08/18 22:12 PMH/Surg Hx/FS Hx/Imm Hx Endocrine/Hematology History: Reports: Hx Thyroid Disease - Pt reports he takes Synthroid daily Denies: Hx Anticoagulant Therapy, Hx Blood Disorders Cardiovascular History: Denies: Hx Pacemaker/ICD GI History: Reports: Hx Ulcer - at age 17 Denies: Other GI Disorders History: Denies: Other Problems/Disorders Musculoskeletal History: Denies: Other Musculoskeletal History Sensory History: Reports: Hx Contacts or Glasses Denies: Hx Hearing Aid Opthamlomology History: Reports: Hx Contacts or Glasses Neurological History: Reports: Hx Headaches - CLUSTER HEADACHES, Hx Migraine, Other Neuro Impairments/Disorders - Hx [place] syndrome age 9 Psychiatric History: Reports: Hx Anxiety, Hx Depression, Hx Inpatient Treatment , Hx Community Mental Health Tx, Hx Bipolar Disorder, Hx of Violent Episodes Against Others, Hx Substance Abuse - Early 20s Denies: Hx Eating Disorder, Hx Panic Disorder, Hx Post Traumatic Stress Disorder, Hx Schizophrenia, Hx Suicide Attempt - "CLOSE" - Surgical History Surgery Procedure, Year, and Place: TONSILLECTOMY A CHILD. left radial digital nerve branch repair in 2014 Hx Anesthesia Reactions: No Infectious Disease History: No Infectious Disease History: Denies: Traveled Outside the [place] in Last 30 Days - Family History Known Family History: Positive: Other - Alcohol abuse (brother and uncle) - Social History Alcohol Use: None Alcohol Amount: pt states he has been sober Hx Substance Use: Yes Substance Use Type: Reports: Marijuana Substance Use Comment - Amount & Last Used: weekly Hx Tobacco Use: Yes Smoking Status (MU): Heavy Every Day Tobacco Smoker Type: Cigarettes Amount Used/How Often: 1/4 PPD Length of Time of Smoking/Using Tobacco: 10 YRS Have You Smoked in the Last Year: No Review of Systems Constitutional: Negative Eyes: Negative ENT: Negative Cardiovascular: Negative Respiratory: Negative Gastrointestinal: Negative Genitourinary: Negative Musculoskeletal: Other Skin: Negative Neurological: Negative Psychological: Normal All Other Systems Reviewed And Are Negative: Yes Physical Exam - Summary Physical Exam Summary: Mild pain with palpation of left paraspinal muscles of lumbar spine. No bony point tenderness along the entire spine. No ecchymosis, erythema, deformity, swelling, mass noted along the entire spine. No pain with palpation of left gluteus or entire left extremity. Positive tenderness with palpation of left inguinal area. Abdomen soft nontender. Triage Information Reviewed: Yes Vital Signs On Initial Exam: Initial Vitals Temp Pulse Resp BP Pulse Ox 97.2 F 84 20 141/81 100 12/08/18 22:09 12/08/18 22:09 12/08/18 22:09 12/08/18 22:09 12/08/18 22:09 Vital Signs Reviewed: Yes Appearance: Positive: Well-Appearing Skin: Positive: Warm Head/Face: Positive: Normal Head/Face Inspection Eyes: Positive: Normal Neck: Positive: Supple Respiratory/Lung Sounds: Positive: Clear to Auscultation Cardiovascular: Positive: Normal Abdomen Description: Positive: Nontender Diagnostics - Vital Signs Vital Signs Temp Pulse Resp BP Pulse Ox 12/09/18 00:15 59 99 12/09/18 00:14 68 136/70 100 12/08/18 22:09 97.2 F 84 20 141/81 100 - Laboratory Result Diagrams: 12/09/18 02:30 12/09/18 02:30 Lab Statement: Any lab studies that have been ordered have been reviewed, and results considered in the medical decision making process. Re-Evaluation - Re-Evaluation First Eval Re-Evaluation Time: 05:23 Change: Improved Comment: I have discussed results with the patient, and symptoms have improved. Discussed symptoms that warrant immediate return to ED. Back Pain Course/Dx - Course Course Of Treatment: Patient complains of sudden onset left lower back pain radiating into left inguinal crease and down left leg when lying down to go to bed tonight. Patient works for [employer], denies any specific traumatic event. Patient is ambulatory with pain. Denies fever, cough, sore throat, CP, SOB, N/V/D, abdominal pain, change in urine, change in BM, penus or testicular symptoms. Denies IV drug use. States history of intermittent back pain, but never pain that has radiated down his leg. Denies urinary retention, incontinence of bowel, numbness tingling in left lower extremity. Vital signs within normal limits. Recent symptoms improved with Valium 5 mg by mouth, Toradol 30 mg IM, lidocaine patch, oxycodone 5 mg by mouth. WBC 16.2. Labs otherwise unremarkable. CT of lumbar spine pending. Patient signed out to Dr. Pelayo - Diagnoses Provider Diagnoses: Low back pain Discharge ED - Sign-Out/Discharge Documenting (check all that apply): Sign-Out Patient Signing out patient TO: Melissa Pelayo Patient Received Moderate/Deep Sedation with Procedure: No - Discharge Plan Condition: Stable Disposition: HOME Prescriptions: Cyclobenzaprine TAB* [Flexeril 10 MG TAB*] 10 mg PO TID PRN 7 Days #20 tab PRN Reason: Spasms predniSONE TAB* [Deltasone 20 MG TAB*] 60 mg PO DAILY #5 bottle Patient Education Materials: Low Back Strain (ED) Forms: *Work Release Referrals: Km Fishman MD [Primary Care Provider] - 3 Days Additional Instructions: Please follow up with your primary care physician within three days. Please return to ED for any new or worsening symptoms. - Billing Disposition and Condition Condition: STABLE Disposition: Home
[2018-12-09] MEDS ORDERED: oxyCODONE TAB* 5 MG TAB PO ONE (01:32)
[2018-12-09] MEDS ORDERED: Lidocaine PATCH 5%* 1 PATCH TRANSDERM SCH (02:00)
[2018-12-09 02:39] LABS: ABS Basophils 0.1 10^3/ul (0-0.2); ABS Eosinophils 0.1 10^3/ul (0-0.6); ABS Lymphocytes 1.4 10^3/ul (1.0-4.8); ABS Monocytes 1.1 10^3/ul (0-0.8); ABS Neutrophils 13.6 10^3/ul (1.5-7.7); Eosinophil % 0.7 %; Hematocrit 42 % (42-52); Hemoglobin 14.1 g/dL (14.0-18.0); Lymphocyte % 8.4 %; Mean Corpuscular HGB Conc 34 g/dL (31-36); Mean Corpuscular Hemoglobin 29 pg (27-31); Mean Corpuscular Volume 86 fL (80-94); Mean Platelet Volume 9.3 fL (7.4-10.4); Platelet Count 195 10^3/uL (150-450); Red Blood Count 4.87 10^6 /uL (4.18-5.48); Red Cell Distribution Width 14 % (10-15); White Blood Count 16.2 10^3/uL (3.5-10.8)
[2018-12-09 02:55] LABS: Albumin 4.5 g/dL (3.2-5.2); BUN/Creatinine Ratio 12.6 (8-20); C Reactive Protein 4.24 mg/L (<8.01); Calcium 9.6 mg/dL (8.6-10.3); EGFR African American 105.2 (>60); EGFR Non-African American 86.9 (>60); Globulin 2.3 g/dL (2-4); Potassium 4.1 mmol/L (3.5-5.0); Total Bilirubin 0.4 mg/dL (0.2-1.0); Total Protein 6.8 g/dL (6.4-8.9)
--- NOTE | 2018-12-09 04:26 | ED ---
Progress - Progress Note Progress Note: The patient is a sign-out from PARISH Argueta, to Dr. Melissa Pelayo MD, at change of shift at 0230 on 12/09/2018, pending Lumbar Spine CT, UA, and disposition. Lumbar Spine CT impression reveals hyperdensity in the right side of the pelvis but is otherwise negative. UA reveals specific gravity of 1.009 and trace ketones but is otherwise unremarkable. Brody and I discussed the results of today's visit with the pt. He understands and agrees with the plan. - Results/Orders Results/Orders: Lumbar Spine CT Impression: : 1. No acute findings. 2. Linear hyperdensity seen in the right side of the pelvis. The significance and etiology arent clear. Consider AP view of the pelvis. ED physician has reviewed this imaging report. Re-Evaluation - Re-Evaluation First Eval Re-Evaluation Time: 05:23 Change: Improved Comment: I have discussed results with the patient, and symptoms have improved. Discussed symptoms that warrant immediate return to ED. Course/Dx - Course Course Of Treatment: The patient is a sign-out from PARISH Argueta, to Dr. Melissa Pelayo MD, at change of shift at 0230 on 12/09/2018, pending UA, Lumbar Spine CT, and disposition. UA reveals specific gravity of 1.009 and trace ketones but is otherwise unremarkable. Lumbar Spine CT impression reveals hyperdensity in the right side of the pelvis but is otherwise negative. Pt is clear for dishcharge. We discussed all results and plan with rx for Flexeril and Prednisone; he understands and agrees. - Diagnoses Provider Diagnoses: Low back pain Discharge ED - Sign-Out/Discharge Documenting (check all that apply): Patient Departure - Patient will be discharged home., Receiving Sign-Out Receiving patient FROM: Brody Foster - Patient is a sign-out from PAR[facility] Argueta , at 0230 on 12/09/2018, pending Lumbar Spine CT, UA, and disposition. Patient Received Moderate/Deep Sedation with Procedure: No - Discharge Plan Condition: Stable Disposition: HOME Prescriptions: Cyclobenzaprine TAB* [Flexeril 10 MG TAB*] 10 mg PO TID PRN 7 Days #20 tab PRN Reason: Spasms predniSONE TAB* [Deltasone 20 MG TAB*] 60 mg PO DAILY #5 bottle Patient Education Materials: Low Back Strain (ED) Forms: *Work Release Referrals: Km Fishman MD [Primary Care Provider] - 3 Days Additional Instructions: Please follow up with your primary care physician within three days. Please return to ED for any new or worsening symptoms. - Billing Disposition and Condition Condition: STABLE Disposition: Home - Attestation Statements Document Initiated by Janessa: Yes Documenting Scribe: Laila Baugh Provider For Whom Janessa is Documenting (Include Credential): Dr. Melissa Pelayo MD Scribe Attestation: Laila Tijerina scribed for Dr. Melissa Pelayo MD on 12/09/18 at 0616. Scribe Documentation Reviewed: Yes Provider Attestation: The documentation as recorded by the Laila mckeon accurately reflects the service I personally performed and the decisions made by me, Dr. Melissa Pelayo MD Status of Scribrivera Document: Viewed
[2018-12-09 05:16] LABS: Urine Appearance Clear; Urine Bilirubin Negative (Negative); Urine Blood Negative (Negative); Urine Color Yellow; Urine Glucose Negative (Negative); Urine Ketones Trace (Negative); Urine Nitrite Negative (Negative); Urine Protein Negative (Negative); Urine Specific Gravity 1.009 (1.010-1.030); Urine Urobilinogen Negative (Negative)
[2018-12-09 05:30] VITALS: BP 120/69
[2018-12-09] MEDS ORDERED: Lidocaine Patch REMOVE* 1 NOTE MISC SCH (21:00)
== END 2018-12-09 05:35 | disposition home or self-care (01) ==
LOC: ED 22:06
DX: M54.5 Low back pain (principal); E07.9 Disorder of thyroid, unspecified; F41.9 Anxiety disorder, unspecified; F32.9 Major depressive disorder, single episode, unspecified; Z79.899 Other long term (current) drug therapy
CPT/HCPCS: 36415; 72131; 80053; 81003; 83605; 85025; 86140; 96372; 99283; A9270-GY; J1885